=== PATIENT | female | born 1990 | race American Indian/Alaskan Native ===

== ENCOUNTER 2019-05-07 01:26 | Emergency (ER) | payer SELFPAY ==
[2019-05-07] MEDS ORDERED: CYCLOBENZAPRINE 10 MG TAB PO ONE (02:34)
[2019-05-07] MEDS ORDERED: KETOROLAC 30 MG/1 ML INJ IM ONE (02:34)
--- NOTE | 2019-05-07 02:40 | Emergency Department Report ---
ED Back Pain/Injury HPI - General Chief Complaint: Back Pain/Injury Stated Complaint: BACK PAIN Time Seen by Provider: 05/07/19 02:31 Source: patient Limitations: No Limitations - History of Present Illness Initial Comments: Ms Hess is a 28 y/o female who presents for back spams x 1 week. pt states she was being and felt her mid pack pull, now spasm intermittent. 5/10. pain is relieved by nothing, pain is exacerbated by bending twisting reaching. There is no numbness no tingling no weakness no loss or decrease in bowel or bladder function. pt remain ambulatory with steady gait. MD Complaint: back injury Onset/Timin -: week(s) Similar Symptoms Previously: Yes Place: home Radiation: none Severity: moderate Severity scale (0 -10): 4 Quality: aching (spasm) Consistency: intermittent Improves With: other (rest ) Worsens With: movement Context: turning/twisting, bending Associated Symptoms: denies other symptoms. denies: weakness, numbness, difficulty walking, difficulty urinating, incontinence, constipation, jason sea/vomiting - Related Data Previous Rx's Medication Instructions Recorded Last Taken Type Cyclobenzaprine [Flexeril] 10 mg PO TID PRN #30 tablet 05/07/19 Unknown Rx Menthol/Camphor [[place] 1 applicatio TP QID PRN #1 tube 05/07/19 Unknown Rx Ointment] Naproxen 500 mg PO BID PRN #30 tablet 05/07/19 Unknown Rx Allergies Allergy/AdvReac Type Severity Reaction Status Date / Time No Known Allergies Allergy Unverified 05/07/19 01:33 ED Review of Systems ROS: Stated complaint: BACK PAIN Other details as noted in HPI Constitutional: denies: chills, fever Eyes: denies: eye pain, eye discharge, vision change ENT: denies: ear pain, throat pain Respiratory: denies: cough, shortness of breath, wheezing Cardiovascular: denies: chest pain, palpitations Endocrine: no symptoms reported Gastrointestinal: denies: abdominal pain, nausea, diarrhea Genitourinary: denies: urgency, dysuria, discharge Musculoskeletal: denies: back pain, joint swelling, arthralgia, myalgia Skin: denies: rash, lesions Neurological: denies: headache, weakness, paresthesias Psychiatric: denies: anxiety, depression Hematological/Lymphatic: denies: easy bleeding, easy bruising ED Past Medical Hx - Past Medical History Previous Medical History?: No - Surgical History Past Surgical History?: No - Social History Smoking Status: Current Every Day Smoker Substance Use Type: None - Medications Home Medications: Home Medications Medication Instructions Recorded Confirmed Last Taken Type Cyclobenzaprine [Flexeril] 10 mg PO TID PRN #30 tablet 05/07/19 Unknown Rx Menthol/Camphor [[place] 1 applicatio TP QID PRN #1 tube 05/07/19 Unknown Rx Ointment] Naproxen 500 mg PO BID PRN #30 tablet 05/07/19 Unknown Rx ED Physical Exam - General Limitations: No Limitations General appearance: alert, in no apparent distress - Head Head exam: Present: atraumatic, normocephalic - Eye Eye exam: Present: normal appearance, PERRL, EOMI Pupils: Present: normal accommodation - ENT ENT exam: Present: mucous membranes moist - Neck Neck exam: Present: normal inspection. Absent: tenderness, lymphadenopathy - Respiratory Respiratory exam: Present: normal lung sounds bilaterally. Absent: respiratory distress, wheezes, stridor, chest wall tenderness - Cardiovascular Cardiovascular Exam: Present: regular rate, normal rhythm, normal heart sounds. Absent: systolic murmur, diastolic murmur, rubs, gallop - GI/Abdominal GI/Abdominal exam: Present: soft, normal bowel sounds. Absent: distended, tenderness, bruit, hernia - Rectal Rectal exam: Present: deferred - Extremities Exam Extremities exam: Present: normal inspection, normal capillary refill - Back Exam Back exam: Present: normal inspection, full ROM, tenderness (no posterior vertebral point tenderness, mild paraspinus back muscle tenderness with deep palpation), muscle spasm, paraspinal tenderness. Absent: CVA tenderness (R), CVA tenderness (L), vertebral tenderness, rash noted - Expanded Back Exam Expanded Back exam: Absent: saddle anesthesia Back exam: Negative Straight Leg Raising: Left, Right - Neurological Exam Neurological exam: Present: alert, oriented X3, CN II-XII intact, normal gait, reflexes normal. Absent: motor sensory deficit - Expanded Neurological Exam Expanded Patient oriented to: Present: person, place, time Motor strength exam: RUE: 5, LUE: 5, RLE: 5, LLE: 5 Best Eye Response (Ocate): (4) open spontaneously Best Motor Response (Dany): (6) obeys commands Best Verbal Response (Ocate): (5) oriented Ocate Total: 15 - Psychiatric Psychiatric exam: Present: normal affect, normal mood - Skin Skin exam: Present: warm, dry, intact, normal color. Absent: rash ED Course Vital Signs 05/07/19 01:32 Temperature 98.3 F Pulse Rate 91 H Respiratory 18 Rate Blood Pressure 157/92 O2 Sat by Pulse 96 Oximetry ED Medical Decision Making - Medical Decision Making This is a back strain, plan: nsaids, mucle relaxant, analgesic balm, follow up with pcp in 2-3 days moist heat, back exercises. pt verbalized agreement and understanding of discharge plan. Critical care attestation.: If time is entered above; I have spent that time in minutes in the direct care of this critically ill patient, excluding procedure time. ED Disposition Clinical Impression: Strain, back Qualifiers: Encounter type: initial encounter Qualified Code(s): S39.012A - Strain of muscle, fascia and tendon of lower back, initial encounter Disposition: - TO HOME OR SELFCARE Is pt being admited?: No Does the pt Need Aspirin: No Condition: Stable Instructions: Muscle Strain (ED), Core Strengthening Exercises (GEN) Prescriptions: Cyclobenzaprine [Flexeril] 10 mg PO TID PRN #30 tablet PRN Reason: Muscle Spasm Naproxen 500 mg PO BID PRN #30 tablet PRN Reason: pain Menthol/Camphor [[place] Ointment] 1 applicatio TP QID PRN #1 tube PRN Reason: pain Referrals: [facility] [Outside] - 3-5 Days TRUDY WOOD MD [Staff Physician] - 3-5 Days Forms: Work/School Release Form(ED) Time of Disposition: 02:47
[2019-05-07 03:34] VITALS: BP 150/92
== END 2019-05-07 03:30 | disposition home or self-care (01) ==
LOC: ED 01:26
DX: S39.012A Strain of muscle, fascia and tendon of lower back, initial encounter (principal); F17.200 Nicotine dependence, unspecified, uncomplicated; X50.1XXA Overexertion from prolonged static or awkward postures, initial encounter; Y93.89 Activity, other specified; Y92.009 Unspecified place in unspecified non-institutional (private) residence as the place of occurrence of the external cause; Y99.8 Other external cause status
CPT/HCPCS: 96372; 99282; J1885

== ENCOUNTER 2019-05-29 16:03 | Inpatient (IN) | payer OTHER ==
[2019-05-29] MEDS ORDERED: HYDROcodone/ACETAMINOPHEN 7.5-325MG TAB PO ONE (16:29)
[2019-05-29] MEDS ORDERED: HYDROcodone/ACETAMINOPHEN 7.5-325MG TAB ONE (16:30)
[2019-05-29] MEDS ORDERED: MORPHINE 4 MG/1 ML INJ IV ONE ×2 (17:34→18:23)
[2019-05-29] MEDS ORDERED: KETOROLAC 30 MG/1 ML INJ IV ONE (17:34)
--- NOTE | 2019-05-29 17:35 | Vascular Lab Report ---
DUPLEX DOPPLER LEFT LOWER EXTREMITY VEINS INDICATION: Pain, swelling FINDINGS: There is occlusive DVT throughout the left lower extremity from the external iliac vein through the c ofe veins. The findings were discussed with Dr. Caldwell at 5:13 PM Eastern time on 05/29/2019. Signer Name: Alejandro Guan MD Signed: 05/29/2019 5:30 PM Workstation Name: [id number]
--- NOTE | 2019-05-29 17:39 | Vascular Lab Report ---
DUPLEX DOPPLER LOWER EXTREMITY ARTERIAL, LEFT INDICATION: Pain, swelling, ext cool to touch. TECHNIQUE: Arterial duplex examination of the left lower extremity performed using B-mode, color flow and spectr al Doppler assessment. FINDINGS: LEFT: Common Femoral Artery: PSV 210 cm/sec. Triphasic waveform. Proximal SFA: PSV 129 cm/sec. Triphasic waveform. Mid SFA: PSV 75 cm/sec. Triphasic waveform. Distal SFA: PSV 47 cm/sec. Biphasic waveform. Popliteal artery: PSV 48 cm/sec. Biphasic waveform. Posterior tibial artery: PSV 42 cm/sec. Biphasic waveform. Dorsalis Pedis Artery: PSV 44 cm/sec. Biphasic waveform. IMPRESSION: 1. There is some degree of hemodynamically significant peripheral arterial disease in the left lower extremity based on waveform transition from triphasic to biphasic. Doppler Waveform: * Triphasic is normal. * Biphasic is abnormal if clear transition from triphasic signal along vascular tree. * Monophasic is abnormal. Signer Name: Alejandro Guan MD Signed: 05/29/2019 5:35 PM Workstation Name: [id number]
[2019-05-29 17:48] LABS: Hematocrit 42.5 % (30.3-42.9); Mean Corpuscular HGB Conc 33 % (30-34); Mean Corpuscular Volume 85 fl (79-97); Platelet Count 255 K/mm3 (140-440); Red Cell Distribution Width 13.5 % (13.2-15.2)
[2019-05-29 17:59] LABS: INR 1.02 (0.87-1.13)
[2019-05-29 18:00] LABS: Partial Thromboplastin Time 25.2 Sec. (24.2-36.6)
[2019-05-29 18:06] LABS: BUN/Creatinine Ratio 10; Blood Urea Nitrogen 9 mg/dL (7-17); Calcium 9.7 mg/dL (8.4-10.2); Hemolysis Index 58
--- NOTE | 2019-05-29 18:16 | History and Physical Report ---
History of Present Illness Chief complaint: My leg hurts History of present illness: 28 YO Female with MO, Nicotine Dependence, DJD presents to ED for evaluation. Pt states that she has experienced left lower leg and thigh pain over the past 2 days with persistently worsening symptoms over the same time frame. Pt states that pain in 8/10, constant, worsened with movement and weight bearing. Pt states that she had an influenza exposure within the past 1 week. Pt transported to [facility] via private vehicle. Pt seen and evaluated in ED and found to have Extensive LLE DVT as well as evidence of sepsis. Pt initiated on sepsis protocol, and admitted to medical floor. Vascular team consulted in ED. Pt is pending vascular surgical intervention. Pt denies fever, chills, CP, Palpitations, Hemoptysis, Prolonged travel/immobility, Individual/Family history of DVT/PE/Bleeding/Blood Clotting Disorders. No prior admission for review. All listed medication reconciled at time of admission. Past History Past Medical History: other (See HPI) Past Surgical History: No surgical history (reviewed), Other Social history: , lives with family, smoking. denies: alcohol abuse, prescription drug abuse, IV drug use Family history: no significant family history (reviewed) Medications and Allergies Allergies Allergy/AdvReac Type Severity Reaction Status Date / Time No Known Allergies Allergy Unverified 05/07/19 01:33 Home Medications Medication Instructions Recorded Confirmed Last Taken Type Cyclobenzaprine [Flexeril] 10 mg PO TID PRN #30 tablet 05/07/19 Unknown Rx Menthol/Camphor [[place] 1 applicatio TP QID PRN #1 tube 05/07/19 Unknown Rx Ointment] Naproxen 500 mg PO BID PRN #30 tablet 05/07/19 Unknown Rx Review of Systems Constitutional: no weight loss, no weight gain, no fever, no chills Ears, nose, mouth and throat: no ear pain, no ear discharge, no tinnitis, no nose pain, no nasal congestion, no sinus pressure Breasts: no change in shape, no swelling, no mass Cardiovascular: no chest pain, no orthopnea, no palpitations, no rapid/irregular heart beat, no syncope, no lightheadedness Respiratory: no cough, no cough with sputum, no excessive sputum, no hemoptysis, no shortness of breath, no dyspnea on exertion, no wheezing Gastrointestinal: no abdominal pain, no nausea, no vomiting, no constipation Genitourinary Female: no pelvic pain, no flank pain, no menorrhagia, no dysuria, no urinary frequency, no urgency Rectal: no pain, no incontinence, no bleeding Musculoskeletal: other (Left leg pain, swelling, ), no neck stiffness, no neck pain, no shooting arm pain Integumentary: no rash, no pruritis, no sores Neurological: no head injury, no paralysis, no weakness, no parathesias, no ting ling Psychiatric: no anxiety, no memory loss, no sleep disturbances, no insomnia, no change in appetite, no change in libido Endocrine: no cold intolerance, no heat intolerance, no excessive thirst, no polydipsia, no nocturia, no excessive sweating, no flushing Hematologic/Lymphatic: no easy bruising, no easy bleeding, no lymphadenopathy, no lymphedema Allergic/Immunologic: no urticaria, no allergic rhinitis, no persistent infections, no anaphylaxis, no angioedema Exam - Constitutional Vitals: Temp Pulse Resp BP Pulse Ox 97.5 F L 109 H 16 148/97 97 05/29/19 16:18 05/29/19 17:43 05/29/19 17:43 05/29/19 17:43 05/29/19 17:43 General appearance: Present: mild distress - EENT Eyes: Present: PERRL ENT: hearing intact, clear oral mucosa - Neck Neck: Present: supple, normal ROM - Respiratory Respiratory effort: normal Respiratory: bilateral: CTA - Cardiovascular Heart Sounds: Present: S1 & S2. Absent: rub, click - Extremities Extremities: pulses symmetrical, No edema Extremity abnormal: edema, tenderness (LLE edema, tenderness,) Peripheral Pulses: within normal limits - Abdominal General gastrointestinal: Present: soft, non-tender, non-distended, normal bowel sounds Female genitourinary: Present: normal - Integumentary Integumentary: Present: clear, warm, dry - Musculoskeletal Musculoskeletal: gait normal, strength equal bilaterally - Psychiatric Psychiatric: appropriate mood/affect, intact judgment & insight - Neurologic Neurologic: CNII-XII intact, moves all extremities Results - Labs CBC & Chem 7: 05/29/19 17:36 05/29/19 17:36 Labs: Abnormal lab results 05/29/19 05/29/19 Range/Units 17:36 17:36 WBC 26.3 H (4.5-11.0) K/mm3 Carbon Dioxide 18 L (22-30) mmol/L Glucose 132 H (65-100) mg/dL Assessment and Plan - Patient Problems (1) Sepsis Status: Acute Qualifiers: Severe sepsis shock status: unspecified Plan to address problem: Sepsis protocol: Urinalysis, Influenza A and B, CBC, CMP, Chest X ray, serial lactic acid level, IVF resuscitation therapy, IV antibiotic therapy. (2) Obesity Status: Acute Qualifiers: Body mass index: BMI 40.0-44.9 Plan to address problem: Balanced diet, increased physical activity ad discharge, (3) Nicotine dependence with withdrawal Status: Acute Qualifiers: Nicotine product type: cigarettes Qualified Code(s): F17.213 - Nicotine dependence, cigarettes, with withdrawal Plan to address problem: +15min, smoking cessation counseling, supportive care. (4) DVT (deep venous thrombosis) Status: Acute Qualifiers: DVT location: lower extremity Affected thrombotic vein of extremity: iliac Chronicity: acute Laterality: left Qualified Code(s): I82.422 - Acute embolism and thrombosis of left iliac vein Plan to address problem: Therapeutic anticoagulation, Hypercoagulable workup, heparin drip no bolus, Vascular surgery team consulted, Pt is pending surgical intervention today. (5) Acidosis Status: Acute Plan to address problem: Treat sepsis, serial lactic acid level, supportive care. IVF resuscitation therapy. (6) DVT prophylaxis Status: Acute Plan to address problem: SCD to BLE while in bed, therapeutic anticoagulation
[2019-05-29] MEDS ORDERED: ONDANSETRON 4 MG/2 ML INJ IV PRN ×2 (18:22→19:36)
[2019-05-29] MEDS ORDERED: ALBUTEROL 2.5 MG/3 ML NEBU IH PRN (18:22)
[2019-05-29] MEDS ORDERED: ACETAMINOPHEN 325 MG TAB PO PRN (18:22)
[2019-05-29 18:23] LABS: Basophils % (Manual) 0 % (0.0-1.8); Eosinophils % (Manual) 0 % (0.0-4.3); RBC Morphology Normal; Total Cells Counted 100
--- NOTE | 2019-05-29 18:27 | Emergency Department Report ---
ED Extremity Problem HPI - General Chief complaint: Extremity Problem,Nontraumatic Stated complaint: L LEG CRAMPING/PAIN/L FOOT NUMBNESS Time Seen by Provider: 05/29/19 17:09 Source: patient Mode of arrival: Wheelchair Limitations: No Limitations - History of Present Illness Initial comments: Patient is a 28-year-old female who is presenting with left thigh and left lower extremity pain. Patient states the pain began in her thigh feels worse with movement and walking. It is now extending into her foot. She denies any trauma. Patient states the pain is 8 out of 10 in severity. Patient denies chest pain shortness of breath fevers chills cough cold or congestion at this time. Severity scale (0 -10): 6 - Related Data Previous Rx's Medication Instructions Recorded Last Taken Type Cyclobenzaprine [Flexeril] 10 mg PO TID PRN #30 tablet 05/07/19 Unknown Rx Menthol/Camphor [[place] 1 applicatio TP QID PRN #1 tube 05/07/19 Unknown Rx Ointment] Naproxen 500 mg PO BID PRN #30 tablet 05/07/19 Unknown Rx Allergies Allergy/AdvReac Type Severity Reaction Status Date / Time No Known Allergies Allergy Unverified 05/07/19 01:33 ED Review of Systems ROS: Stated complaint: L LEG CRAMPING/PAIN/L FOOT NUMBNESS Other details as noted in HPI Comment: All other systems reviewed and negative ED Past Medical Hx - Past Medical History Previous Medical History?: No - Surgical History Past Surgical History?: No - Social History Smoking Status: Current Every Day Smoker Substance Use Type: Marijuana - Medications Home Medications: Home Medications Medication Instructions Recorded Confirmed Last Taken Type Cyclobenzaprine [Flexeril] 10 mg PO TID PRN #30 tablet 05/07/19 Unknown Rx Menthol/Camphor [[place] 1 applicatio TP QID PRN #1 tube 05/07/19 Unknown Rx Ointment] Naproxen 500 mg PO BID PRN #30 tablet 05/07/19 Unknown Rx ED Physical Exam - General Limitations: No Limitations General appearance: alert, in no apparent distress - Head Head exam: Present: atraumatic, normocephalic - Eye Eye exam: Present: normal appearance, PERRL, EOMI - ENT ENT exam: Present: mucous membranes moist - Neck Neck exam: Present: normal inspection - Respiratory Respiratory exam: Present: normal lung sounds bilaterally. Absent: respiratory distress, wheezes, rales, rhonchi - Cardiovascular Cardiovascular Exam: Present: regular rate, normal rhythm. Absent: systolic murmur, diastolic murmur, rubs, gallop - GI/Abdominal GI/Abdominal exam: Present: soft, normal bowel sounds. Absent: distended, tenderness, guarding - Extremities Exam Extremities exam: Present: normal inspection, tenderness (LLE at level of the th igh), normal capillary refill, other (bilateral lower extremities are cool to touch left greater than right a dorsalis pedal pulse on the left lower extremity is palpable but is diminished.) - Back Exam Back exam: Present: normal inspection - Neurological Exam Neurological exam: Present: alert, oriented X3 - Psychiatric Psychiatric exam: Present: normal affect, normal mood - Skin Skin exam: Present: warm, dry, intact, normal color. Absent: rash ED Course Vital Signs 05/29/19 05/29/19 16:18 17:43 Temperature 97.5 F L Pulse Rate 102 H 109 H Respiratory 18 16 Rate Blood Pressure 132/92 Blood Pressure 148/97 [Right] O2 Sat by Pulse 97 97 Oximetry ED Medical Decision Making - Lab Data Result diagrams: 05/29/19 17:36 05/29/19 17:36 Lab Results 05/29/19 05/29/19 05/29/19 Range/Units 17:36 17:36 17:36 WBC 26.3 H (4.5-11.0) K/mm3 RBC 5.00 (3.65-5.03) M/mm3 Hgb 14.0 (10.1-14.3) gm/dl Hct 42.5 (30.3-42.9) % MCV 85 (79-97) fl MCH 28 (28-32) pg MCHC 33 (30-34) % RDW 13.5 (13.2-15.2) % Plt Count 255 (140-440) K/mm3 Add Manual Diff Complete Total Counted 100 Seg Neuts % (Manual) 87.0 H (40.0-70.0) % Band Neutrophils % 0 % Lymphocytes % (Manual) 8.0 L (13.4-35.0) % Reactive Lymphs % (Man) 0 % Monocytes % (Manual) 5.0 (0.0-7.3) % Eosinophils % (Manual) 0 (0.0-4.3) % Basophils % (Manual) 0 (0.0-1.8) % Metamyelocytes % 0 % Myelocytes % 0 % Promyelocytes % 0 % Blast Cells % 0 % Nucleated RBC % Not Reportable Seg Neutrophils # Man 22.9 H (1.8-7.7) K/mm3 Band Neutrophils # 0.0 K/mm3 Lymphocytes # (Manual) 2.1 (1.2-5.4) K/mm3 Abs React Lymphs (Man) 0.0 K/mm3 Monocytes # (Manual) 1.3 H (0.0-0.8) K/mm3 Eosinophils # (Manual) 0.0 (0.0-0.4) K/mm3 Basophils # (Manual) 0.0 (0.0-0.1) K/mm3 Metamyelocytes # 0.0 K/mm3 Myelocytes # 0.0 K/mm3 Promyelocytes # 0.0 K/mm3 Blast Cells # 0.0 K/mm3 WBC Morphology Not Reportable Hypersegmented Neuts Not Reportable Hyposegmented Neuts Not Reportable Hypogranular Neuts Not Reportable Smudge Cells Not Reportable Toxic Granulation Not Reportable Toxic Vacuolation Not Reportable Dohle Bodies Not Reportable Pelger-Huet Anomaly Not Reportable Don Rods Not Reportable Platelet Estimate Not Reportable Clumped Platelets Not Reportable Plt Clumps, EDTA Not Reportable Large Platelets Not Reportable Giant Platelets Not Reportable Platelet Satelliting Not Reportable Plt Morphology Comment Not Reportable RBC Morphology Normal Dimorphic RBCs Not Reportable Polychromasia Not Reportable Hypochromasia Not Reportable Poikilocytosis Not Reportable Anisocytosis Not Reportable Microcytosis Not Reportable Macrocytosis Not Reportable Spherocytes Not Reportable Pappenheimer Bodies Not Reportable Sickle Cells Not Reportable Target Cells Not Reportable Tear Drop Cells Not Reportable Ovalocytes Not Reportable Helmet Cells Not Reportable [place] Bodies Not Reportable Tucker Rings Not Reportable [place] Cells Not Reportable Bite Cells Not Reportable Crenated Cell Not Reportable Elliptocytes Not Reportable Acanthocytes (Spur) Not Reportable Rouleaux Not Reportable Hemoglobin C Crystals Not Reportable Schistocytes Not Reportable Malaria parasites Not Reportable Miguel Bodies Not Reportable Hem Pathologist Commnt No PT 13.3 (12.2-14.9) Sec. INR 1.02 (0.87-1.13) APTT 25.2 (24.2-36.6) Sec. Sodium 137 (137-145) mmol/L Potassium 4.5 (3.6-5.0) mmol/L Chloride 98.3 (98-107) mmol/L Carbon Dioxide 18 L (22-30) mmol/L Anion Gap 25 mmol/L BUN 9 (7-17) mg/dL Creatinine 0.9 (0.7-1.2) mg/dL Estimated GFR > 60 ml/min BUN/Creatinine Ratio 10 % Glucose 132 H (65-100) mg/dL Calcium 9.7 (8.4-10.2) mg/dL - Radiology Data DUPLEX DOPPLER LEFT LOWER EXTREMITY VEINS INDICATION: Pain, swelling FINDINGS: There is occlusive DVT throughout the left lower extremity from the external iliac vein through the calf veins. The findings were discussed with Dr. Caldwell at 5:13 PM Eastern time on 05/29/2019. Signer Name: Alejandro Guan MD Signed: 05/29/2019 5:30 PM Workstation Name: [id number] Transcribed By: SAGAR Dictated By: Alejandro Guan MD Electronically Authenticated By: Alejandro Guan MD Signed Date/Time: 05/29/19 2659 DUPLEX DOPPLER LOWER EXTREMITY ARTERIAL, LEFT INDICATION: Pain, swelling, ext cool to touch. TECHNIQUE: Arterial duplex examination of the left lower extremity performed using B-mode, color flow and spectral Doppler assessment. FINDINGS: LEFT: Common Femoral Artery: PSV 210 cm/sec. Triphasic waveform. Proximal SFA: PSV 129 cm/sec. Triphasic waveform. Mid SFA: PSV 75 cm/sec. Triphasic waveform. Distal SFA: PSV 47 cm/sec. Biphasic waveform. Popliteal artery: PSV 48 cm/sec. Biphasic waveform. Posterior tibial artery: PSV 42 cm/sec. Biphasic waveform. Dorsalis Pedis Artery: PSV 44 cm/sec. Biphasic waveform. IMPRESSION: 1. There is some degree of hemodynamically significant peripheral arterial disease in the left lower extremity based on waveform transition from triphasic to biphasic. Doppler Waveform: * Triphasic is normal. * Biphasic is abnormal if clear transition from triphasic signal along vascular tree. * Monophasic is abnormal. Signer Name: Alejandro Guan MD Signed: 05/29/2019 5:35 PM - Medical Decision Making Patient is a 28-year-old female who is presenting with left lower extremity pain. Ultrasound of the veins and arteries show that the patient has an occlusive DVT of the left lower extremity at the level of the external iliac vein. The clot extends down through the calf veins. Patient also has a transition in her arterial system in this leg from triphasic to biphasic. There was no monophasic flow. Dr. Wesley with vascular surgery is been consulted and will see the patient today and. Dr. Pa with the hospitalist service will admit the patient. Critical Care Time: Yes (30) Critical care attestation.: If time is entered above; I have spent that time in minutes in the direct care of this critically ill patient, excluding procedure time. ED Disposition Clinical Impression: Peripheral vascular disease of lower extremity DVT (deep venous thrombosis) Qualifiers: DVT location: lower extremity Affected thrombotic vein of extremity: iliac Chronicity: acute Laterality: left Qualified Code(s): I82.422 - Acute embolism and thrombosis of left iliac vein Leukocytosis Qualifiers: Leukocytosis type: unspecified Qualified Code(s): D72.829 - Elevated white blood cell count, unspecified Disposition: DC-09 OP ADMIT IP TO THIS HOSP Is pt being admited?: Yes Does the pt Need Aspirin: No Condition: Stable Time of Disposition: 18:30
--- NOTE | 2019-05-29 18:52 | XRay Report ---
CHEST 1 VIEW 05/29/2019 6:30 PM INDICATION / CLINICAL INFORMATION: cough. COMPARISON: None available. FINDINGS: SUPPORT DEVICES: None. HEART / MEDIASTINUM: No significant abnormality. LUNGS / PLEURA: No significant pulmonary or pleural abnormality. No pneumothorax. ADDITIONAL FINDINGS: No significant additional findings. IMPRESSION: 1. No acute findings. Signer Name: Alejandro Guan MD Signed: 05/29/2019 6:47 PM Workstation Name: [id number]
[2019-05-29] MEDS ORDERED: HEPARIN/ 0.45% NACL DRIP 25,000 UNIT/500 ML BAG IV SCH (19:00)
[2019-05-29] MEDS ORDERED: SODIUM CHLORIDE 0.9% 1000 ML IV SOLN IV ONE (19:00)
[2019-05-29] MEDS ORDERED: cefTRIAXone/NS 2 GM/100 ML 2 GM/100 ML BAG IV SCH (19:00)
[2019-05-29] MEDS ORDERED: VANCOMYCIN PHARMACY TO DOSE IV SCH (19:00)
[2019-05-29] MEDS ORDERED: HEPARIN/NS 5000 UNIT/500ML 1,000 ML IR ONE (19:07)
[2019-05-29] MEDS ORDERED: SODIUM CHLORIDE 0.9% 500 ML 0 ML ONE (19:30)
[2019-05-29] MEDS ORDERED: WATER FOR INJ Sterile (PF) 10 ML ONE (19:30)
[2019-05-29] MEDS ORDERED: SODIUM CHLORIDE 0.9% 1000 ML 1,000 ML ONE (19:32)
[2019-05-29] MEDS ORDERED: HEPARIN/ 0.45% NACL DRIP 25,000 UNIT/500 ML BAG ONE (19:32)
[2019-05-29] MEDS ORDERED: MORPHINE 4 MG/1 ML INJ IV PRN (19:36)
--- NOTE | 2019-05-29 19:44 | Consultation ---
History of Present Illness - Reason for Consult Consult date: 05/29/19 DVT, decreased arterial waveforms - History of Present Illness Patient with a 2 day history of worsening left lower extremity pain. She was found to have an extensive iliofemoral DVT with extension to the lower leg. Additionally, arterial duplex demonstrates triphasic flow proximally with biphasic flow distally suggesting some arterial compromise. Past History Past Medical History: other (See HPI) Past Surgical History: No surgical history (reviewed), Other Social history: , lives with family, smoking. denies: alcohol abuse, prescription drug abuse, IV drug use Family history: no significant family history (reviewed) Medications and Allergies Allergies Allergy/AdvReac Type Severity Reaction Status Date / Time No Known Allergies Allergy Unverified 05/07/19 01:33 Home Medications Medication Instructions Recorded Confirmed Last Taken Type Cyclobenzaprine [Flexeril] 10 mg PO TID PRN #30 tablet 05/07/19 Unknown Rx Menthol/Camphor [[place] 1 applicatio TP QID PRN #1 tube 05/07/19 Unknown Rx Ointment] Naproxen 500 mg PO BID PRN #30 tablet 05/07/19 Unknown Rx Active Meds: Active Medications Acetaminophen (Tylenol) 650 mg PO Q4H PRN PRN Reason: Pain MILD(1-3)/Fever >100.5/ARAGON Acetaminophen/Hydrocodone Bitart ([place] 5/325) 2 each PO Q6H PRN PRN Reason: Pain, Moderate (4-6) Albuterol (Proventil) 2.5 mg IH Q4H PRN PRN Reason: Shortness Of Breath Vancomycin HCl 2,000 mg/ (Sodium Chloride) 540 mls @ 333 mls/hr IV ONCE ONE; Protocol Stop: 05/29/19 21:37 Ceftriaxone Sodium (Rocephin/Ns 2 Gm/100 Ml) 2 gm in 100 mls @ 200 mls/hr IV Q12H ROE; Protocol Sodium Chloride (Nacl 0.9% 1000 Ml) 1,000 mls @ 30 mls/hr IV DIRECT ROE Alteplase, Recombinant 20 mg/ (Sodium Chloride) 500 mls @ 25 mls/hr EKOSDLUMEN DIRECT ROE Sodium Chloride (Nacl 0.9% 1000 Ml) 1,000 mls @ 30 mls/hr SHEATH DIRECT ROE Sodium Chloride (Nacl 0.9% 1000 Ml) 1,000 mls @ 35 mls/hr EKOSCLUMEN DIRECT ROE Heparin Sodium/Sodium Chloride (Heparin/ 0.45% Nacl-25,000 Unit/500 Ml) 25,000 unit in 500 mls @ 10 mls/hr SHEATH DIRECT ROE; Protocol Morphine Sulfate (Morphine) 4 mg IV Q4H PRN PRN Reason: Pain , Severe (7-10) Morphine Sulfate (Morphine) 2 mg IV Q4H PRN PRN Reason: Pain, Moderate (4-6) Ondansetron HCl (Zofran) 4 mg IV Q8H PRN PRN Reason: Nausea And Vomiting Ondansetron HCl (Zofran) 4 mg IV Q8H PRN PRN Reason: Nausea And Vomiting Oxycodone/Acetaminophen (Percocet 5/325) 1 tab PO Q6H PRN PRN Reason: Pain, Moderate (4-6) Sodium Chloride (Sodium Chloride Flush Syringe 10 Ml) 10 ml IV BID ROE Sodium Chloride (Sodium Chloride Flush Syringe 10 Ml) 10 ml IV PRN PRN PRN Reason: LINE FLUSH Review of Systems All systems: negative Exam - Constitutional Vitals: Temp Pulse Resp BP Pulse Ox 97.5 F L 109 H 16 148/97 97 05/29/19 16:18 05/29/19 17:43 05/29/19 17:43 05/29/19 17:43 05/29/19 17:43 General appearance: Present: no acute distress - EENT Eyes: Present: EOM intact ENT: hearing intact - Neck Neck: Present: supple, normal ROM - Respiratory Respiratory effort: normal - Extremities Extremity abnormal: edema (lower extremity) - Abdominal General gastrointestinal: Present: deferred - Rectal Rectal Exam: deferred - Psychiatric Psychiatric: cooperative Results - Labs CBC & Chem 7: 05/29/19 17:36 05/29/19 17:36 Labs: Abnormal lab results 05/29/19 05/29/19 Range/Units 17:36 17:36 WBC 26.3 H (4.5-11.0) K/mm3 Seg Neuts % (Manual) 87.0 H (40.0-70.0) % Lymphocytes % (Manual) 8.0 L (13.4-35.0) % Seg Neutrophils # Man 22.9 H (1.8-7.7) K/mm3 Monocytes # (Manual) 1.3 H (0.0-0.8) K/mm3 Carbon Dioxide 18 L (22-30) mmol/L Glucose 132 H (65-100) mg/dL Assessment and Plan Patient with extensive DVT and arterial compromise. She will be brought to the finishing lab technician for placement of an IVC filter as well as an EKOS thrombolytics catheter. She will need admission to the ICU overnight with reevaluation tomorrow to determine the extent of thrombus removal.
[2019-05-29] MEDS ORDERED: SODIUM CHLORIDE 0.9% 1000 ML 1,000 ML EKOSCLUMEN SCH (20:00)
[2019-05-29 20:01] LABS: Bacteria,Urine 4+ /HPF (Negative); Bilirubin,Urine NEG (Negative); Blood,Urine LG (Negative); Color,Urine Yellow (Yellow); HCG Qualitative,Urine Negative (Negative); Mucus,Urine 2+ /HPF; Urobilinogen,Urine < 2.0 mg/dL (<2.0)
[2019-05-29] MEDS: MIDAZOLAM 2 MG/2 ML INJ ONE ×2 (20:20→20:53)
[2019-05-29] MEDS: fentaNYL 100 MCG/2 ML INJ ONE ×2 (20:20→20:53)
[2019-05-29] MEDS: LIDOCAINE (2%) 20 MG/1 ML VIAL 20 ML MDV INFILTRATI ONE ×2 (20:21→20:54)
[2019-05-29] MEDS: HEPARIN 10,000 UNITS/10 ML VIAL ONE ×5 (20:25→21:09)
[2019-05-29] MEDS: SODIUM CHLORIDE 0.9% 1000 ML 1,000 ML SHEATH SCH ×2 (20:30→21:39)
[2019-05-29] MEDS: HEPARIN/ 0.45% NACL DRIP 25,000 UNIT/500 ML BAG SHEATH SCH ×2 (20:30→21:39)
--- NOTE | 2019-05-29 20:40 | Operative Report ---
Operative Report Operative Report: Exam: Ultrasound and fluoroscopic guided placement of IVC filter, ultrasound and fluoroscopic guided placement of Tryalysis catheter, ultrasound and fluoroscopic guided placement of EKOS thrombolytics catheter Clinical indication: Patient with extensive left lower extremity DVT and arterial compromise Date: 05/29/2019 Procedure: Following an expiration of the risks, benefits and alternatives; written informed consent was obtained. The patient was brought to the angiographic suite and initially placed in supine position on the examination table. Initial ultrasound evaluation of her right groin demonstrated a patent right common femoral vein. The patient's right groin was prepped and draped in the usual sterile fashion. 1% lidocaine was used for anesthesia. Under ultrasound guidance, the right common femoral vein was cannulated using a single puncture of an 18-gauge 7 cm needle. A 0.035 guidewire was advanced centrally. The needle was removed and following dilation, the trocar sheath for the IVC filter were advanced over the guidewire to the infrarenal IVC. Contrast was injected which demonstrates a diminutive appearance of the infrarenal IVC which may be secondary to chronic thrombus versus narrowing. The level of the lowest renal veins was identified. The guidewire was reinserted and the trocar and sheath advanced more distally. The trocar and guidewire were removed. A [place] IVC filter was then advanced through the sheath and positioned so that the tip of the IVC filter is at the midportion of the L2 vertebral body. The sheath was removed over the guidewire. A Bard 20 cm Tryalysis catheter was then advanced over the guidewire centrally. The tip of the catheter was placed in the distal IVC. The guidewire was removed. All 3 ports flushed and aspirated easily. The dialysis ports were locked with appropriate volumes of heparin. The pigtail portion was locked with sterile saline. The catheter was securely fastened at the skin surface using 0 silk suture and a compression dressing applied. The patient was then turned to the prone position. Initial ultrasound evaluation of the popliteal fossa demonstrated thrombus within the popliteal vein. The popliteal artery demonstrates pulsatility. The patient popliteal fossa was prepped and draped in the usual sterile fashion on the left. 1% lidocaine was used for anesthesia. Under ultrasound guidance, a 7 cm 18-gauge needle was advanced into the popliteal vein. There was prompt return of dark blood. A 0.035 guidewire was advanced centrally. The needle was removed and a vertebral catheter advanced over the guidewire. Together the vertebral catheter and guidewire were advanced into the left common iliac vein. Contrast was injected which demonstrates that there is some movement of the thrombus into the common iliac vein and IVC as compared to patient's ultrasound. The right vertebral catheter was advanced to the suprarenal IVC and contrast injected gently to document patnecy of the IVC. The catheter was removed. A 40 cm infusion length 106 cm total length EKOS thrombolytics catheter was then advanced over the guidewire to extend from the common iliac vein into the distal femoral vein. The ultrasound wire was then inserted through the catheter. The sheath was then securely fastened of the skin surface and the catheter attached to the sheath. A sterile compression dressing was applied. Sterile dressings were then applied to hold the catheter in position and the catheter primed with 4 mg of TPA and the sheath primed with 4000 units of heparin. The patient tolerated both procedures well. There were no immediate post procedure complications. Conscious sedation was administered under the guidance or radiologic nursing. Continuous cardiopulmonary monitoring was utilized. Impression: 1) Ultrasound and fluoroscopic guided placement of IVC filter from a right common femoral vein approach. 2) Ultrasound and fluoroscopic guided placement of Tryalysis catheter in the right common femoral vein. 3) Ultrasound and fluoroscopic guided placement of EKOS thrombolytics catheter from the left common iliac vein into the distal femoral vein.
[2019-05-29] MEDS: ALTEPLASE 2 MG INJ ONE ×2 (20:59→21:09)
[2019-05-29] MEDS: ALTEPLASE 20 MG in SODIUM CHLORIDE 0.9% 500 ML 500 ML EKOSDLUMEN SCH ×2 (21:08→21:39)
[2019-05-29] MEDS ORDERED: hydrALAZINE 10 MG TAB PO PRN (22:23)
[2019-05-29] MEDS: hydrALAZINE 20 MG/1 ML INJ IV PRN (22:45)
[2019-05-29 23:00] LABS: INR 0.99 (0.87-1.13)
[2019-05-29 23:01] LABS: Partial Thromboplastin Time 27.3 Sec. (24.2-36.6)
[2019-05-29 23:14] LABS: Hematocrit 37.7 % (30.3-42.9); Hemoglobin 12.5 gm/dl (10.1-14.3); Mean Corpuscular HGB Conc 33 % (30-34); Mean Corpuscular Volume 85 fl (79-97); Platelet Count 212 K/mm3 (140-440); Red Blood Count 4.44 M/mm3 (3.65-5.03); Red Cell Distribution Width 13.5 % (13.2-15.2)
[2019-05-29] MEDS: MORPHINE 2 MG/1 ML INJ IV PRN (23:17)
[2019-05-29 23:32] LABS: BUN/Creatinine Ratio 13; Blood Urea Nitrogen 9 mg/dL (7-17); Calcium 8.8 mg/dL (8.4-10.2); Hemolysis Index 37
[2019-05-29] MEDS: VANCOMYCIN 2,000 MG in SODIUM CHLORIDE 0.9% 500 ML 500 ML IV ONE ×2 (23:52→23:59)
[2019-05-30] MEDS ORDERED: VANCOMYCIN 2,000 MG in SODIUM CHLORIDE 0.9% 500 ML 500 ML IV ONE
[2019-05-30 00:38] LABS: Band Neutrophils # (Manual) 0.4 K/mm3; Basophils % (Manual) 0 % (0.0-1.8); Eosinophils % (Manual) 0 % (0.0-4.3); Total Cells Counted 100
[2019-05-30 00:39] LABS: Platelet Estimate Consistent w Auto; RBC Morphology Normal
[2019-05-30] MEDS ORDERED: cefTRIAXone/NS 2 GM/100 ML 2 GM/100 ML BAG IV SCH ×3 (01:00→10:00)
[2019-05-30] MEDS: oxyCODONE /ACETAMINOPHEN 5-325MG TAB PO PRN ×3 (01:11→21:08)
[2019-05-30 01:47] LABS: Basophils % (Auto) 0.2 % (0.0-1.8); Eosinophils % (Auto) 0.1 % (0.0-4.3); Hematocrit 36.5 % (30.3-42.9); Hemoglobin 12.1 gm/dl (10.1-14.3); Lymphocytes % (Auto) 15.1 % (13.4-35.0); Mean Corpuscular HGB Conc 33 % (30-34); Mean Corpuscular Volume 86 fl (79-97); Monocytes % (Auto) 5.1 % (0.0-7.3); Platelet Count 175 K/mm3 (140-440); Red Blood Count 4.27 M/mm3 (3.65-5.03); Red Cell Distribution Width 13.3 % (13.2-15.2)
[2019-05-30] MEDS: MORPHINE 2 MG/1 ML INJ IV PRN ×2 (03:24→07:17)
[2019-05-30 06:40] LABS: Basophils % (Auto) 0.2 % (0.0-1.8); Eosinophils % (Auto) 0.2 % (0.0-4.3); Hematocrit 35.7 % (30.3-42.9); Hemoglobin 11.8 gm/dl (10.1-14.3); Lymphocytes # (Auto) 2.6 K/mm3 (1.2-5.4); Lymphocytes % (Auto) 15.7 % (13.4-35.0); Mean Corpuscular HGB Conc 33 % (30-34); Mean Corpuscular Volume 85 fl (79-97); Monocytes % (Auto) 5.7 % (0.0-7.3); Platelet Count 161 K/mm3 (140-440); Red Blood Count 4.19 M/mm3 (3.65-5.03); Red Cell Distribution Width 13.4 % (13.2-15.2)
[2019-05-30 07:00] LABS: BUN/Creatinine Ratio 11; Blood Urea Nitrogen 8 mg/dL (7-17); Calcium 8.4 mg/dL (8.4-10.2); Hemolysis Index 8
[2019-05-30] MEDS: hydrALAZINE 20 MG/1 ML INJ IV PRN ×2 (08:17→14:36)
[2019-05-30] MEDS: SODIUM CHLORIDE 0.9% 1000 ML 1,000 ML IV SCH ×2 (08:18→11:35)
[2019-05-30] MEDS: VANCOMYCIN 1,250 MG in SODIUM CHLORIDE 0.9% 250ML 250 ML IV SCH ×2 (08:40→21:08)
[2019-05-30] MEDS: cefTRIAXone/NS 2 GM/100 ML 2 GM/100 ML BAG IV SCH (09:48)
--- NOTE | 2019-05-30 10:01 | Progress Note ---
Assessment and Plan Assessment and plan: Sepsis Sepsis protocol: Urinalysis, Influenza A and B, CBC, CMP, Chest X ray, serial lactic acid level, IVF resuscitation therapy, IV antibiotic therapy. On Ceftriaxone and vancomycin DVT left lower ext s/p IVC filter placement, EKOS catheter placenment and thrombolysis Therapeutic anticoagulation, Hypercoagulable workup, heparin drip no bolus, Obesity Balanced diet, increased physical activity ad discharge, Nicotine dependence with withdrawal +15min, smoking cessation counseling, supportive care. Acidosis Treat sepsis, serial lactic acid level, supportive care. IVF resuscitation therapy. UTI On Ceftriaxone History Interval history: Left lower ext pain, diagnosed with DVT s/p IVC filter placement, EKOS catheter placement Hospitalist Physical - Physical exam Narrative exam: Gen: Not in acute distress, lying in bed,morbidly obese HEENT: Normocephalic, atraumatic Neck: supple, no JVD Heart: S1 and S2 reg, no murmurs, rubs or gallop Lungs: Clear to auscultation, Abd: soft, non tender, non distended, normal BS, Ext: No edema, no clubbing, no cyanosis Neuro: Awake, alert, oriented X 3, normal speech. moves all ext - Constitutional Vitals: Temp Pulse Resp BP Pulse Ox 98.3 F 126 H 20 153/94 94 05/30/19 08:00 05/30/19 09:00 05/30/19 09:00 05/30/19 09:00 05/30/19 09:00 General appearance: Present: no acute distress Results - Labs CBC & Chem 7: 05/30/19 15:21 05/31/19 04:42 Labs: Laboratory Last Values WBC 16.8 K/mm3 (4.5-11.0) H 05/30/19 06:20 RBC 4.19 M/mm3 (3.65-5.03) 05/30/19 06:20 Hgb 11.8 gm/dl (10.1-14.3) 05/30/19 06:20 Hct 35.7 % (30.3-42.9) 05/30/19 06:20 MCV 85 fl (79-97) 05/30/19 06:20 MCH 28 pg (28-32) 05/30/19 06:20 MCHC 33 % (30-34) 05/30/19 06:20 RDW 13.4 % (13.2-15.2) 05/30/19 06:20 Plt Count 161 K/mm3 (140-440) 05/30/19 06:20 Lymph % (Auto) 15.7 % (13.4-35.0) 05/30/19 06:20 [place] % (Auto) 5.7 % (0.0-7.3) 05/30/19 06:20 Eos % (Auto) 0.2 % (0.0-4.3) 05/30/19 06:20 Baso % (Auto) 0.2 % (0.0-1.8) 05/30/19 06:20 Lymph # 2.6 K/mm3 (1.2-5.4) 05/30/19 06:20 [place] # 1.0 K/mm3 (0.0-0.8) H 05/30/19 06:20 Eos # 0.0 K/mm3 (0.0-0.4) 05/30/19 06:20 Baso # 0.0 K/mm3 (0.0-0.1) 05/30/19 06:20 Add Manual Diff Complete 05/29/19 22:50 Total Counted 100 05/29/19 22:50 Seg Neutrophils % 78.2 % (40.0-70.0) H 05/30/19 06:20 Seg Neuts % (Manual) 82.0 % (40.0-70.0) H 05/29/19 22:50 Band Neutrophils % 2.0 % 05/29/19 22:50 Lymphocytes % (Manual) 14.0 % (13.4-35.0) 05/29/19 22:50 Reactive Lymphs % (Man) 0 % 05/29/19 22:50 Monocytes % (Manual) 2.0 % (0.0-7.3) 05/29/19 22:50 Eosinophils % (Manual) 0 % (0.0-4.3) 05/29/19 22:50 Basophils % (Manual) 0 % (0.0-1.8) 05/29/19 22:50 Metamyelocytes % 0 % 05/29/19 22:50 Myelocytes % 0 % 05/29/19 22:50 Promyelocytes % 0 % 05/29/19 22:50 Blast Cells % 0 % 05/29/19 22:50 Nucleated RBC % Not Reportable 05/29/19 22:50 Seg Neutrophils # 13.2 K/mm3 (1.8-7.7) H 05/30/19 06:20 Seg Neutrophils # Man 17.0 K/mm3 (1.8-7.7) H 05/29/19 22:50 Band Neutrophils # 0.4 K/mm3 05/29/19 22:50 Lymphocytes # (Manual) 2.9 K/mm3 (1.2-5.4) 05/29/19 22:50 Abs React Lymphs (Man) 0.0 K/mm3 05/29/19 22:50 Monocytes # (Manual) 0.4 K/mm3 (0.0-0.8) 05/29/19 22:50 Eosinophils # (Manual) 0.0 K/mm3 (0.0-0.4) 05/29/19 22:50 Basophils # (Manual) 0.0 K/mm3 (0.0-0.1) 05/29/19 22:50 Metamyelocytes # 0.0 K/mm3 05/29/19 22:50 Myelocytes # 0.0 K/mm3 05/29/19 22:50 Promyelocytes # 0.0 K/mm3 05/29/19 22:50 Blast Cells # 0.0 K/mm3 05/29/19 22:50 WBC Morphology Not Reportable 05/29/19 22:50 Hypersegmented Neuts Not Reportable 05/29/19 22:50 Hyposegmented Neuts Not Reportable 05/29/19 22:50 Hypogranular Neuts Not Reportable 05/29/19 22:50 Smudge Cells Not Reportable 05/29/19 22:50 Toxic Granulation Not Reportable 05/29/19 22:50 Toxic Vacuolation Not Reportable 05/29/19 22:50 Dohle Bodies Not Reportable 05/29/19 22:50 Pelger-Huet Anomaly Not Reportable 05/29/19 22:50 Don Rods Not Reportable 05/29/19 22:50 Platelet Estimate Consistent w auto 05/29/19 22:50 Clumped Platelets Not Reportable 05/29/19 22:50 Plt Clumps, EDTA Not Reportable 05/29/19 22:50 Large Platelets Not Reportable 05/29/19 22:50 Giant Platelets Not Reportable 05/29/19 22:50 Platelet Satelliting Not Reportable 05/29/19 22:50 Plt Morphology Comment Not Reportable 05/29/19 22:50 RBC Morphology Normal 05/29/19 22:50 Dimorphic RBCs Not Reportable 05/29/19 22:50 Polychromasia Not Reportable 05/29/19 22:50 Hypochromasia Not Reportable 05/29/19 22:50 Poikilocytosis Not Reportable 05/29/19 22:50 Anisocytosis Not Reportable 05/29/19 22:50 Microcytosis Not Reportable 05/29/19 22:50 Macrocytosis Not Reportable 05/29/19 22:50 Spherocytes Not Reportable 05/29/19 22:50 Pappenheimer Bodies Not Reportable 05/29/19 22:50 Sickle Cells Not Reportable 05/29/19 22:50 Target Cells Not Reportable 05/29/19 22:50 Tear Drop Cells Not Reportable 05/29/19 22:50 Ovalocytes Not Reportable 05/29/19 22:50 Helmet Cells Not Reportable 05/29/19 22:50 [place] Bodies Not Reportable 05/29/19 22:50 [place] Rings Not Reportable 05/29/19 22:50 [place] Cells Not Reportable 05/29/19 22:50 Bite Cells Not Reportable 05/29/19 22:50 Crenated Cell Not Reportable 05/29/19 22:50 Elliptocytes Not Reportable 05/29/19 22:50 Acanthocytes (Spur) Not Reportable 05/29/19 22:50 Rouleaux Not Reportable 05/29/19 22:50 Hemoglobin C Crystals Not Reportable 05/29/19 22:50 Schistocytes Not Reportable 05/29/19 22:50 Malaria parasites Not Reportable 05/29/19 22:50 Miguel Bodies Not Reportable 05/29/19 22:50 Hem Pathologist Commnt No 05/29/19 22:50 PT 13.0 Sec. (12.2-14.9) 05/29/19 17:36 PT 13.3 Sec. (12.2-14.9) 05/29/19 17:36 INR 0.99 (0.87-1.13) 05/29/19 17:36 INR 1.02 (0.87-1.13) 05/29/19 17:36 APTT 25.2 Sec. (24.2-36.6) 05/29/19 17:36 APTT 27.3 Sec. (24.2-36.6) 05/29/19 17:36 Fibrinogen 139 mg/dl (211-480) L 05/30/19 06:20 Heparin Anti-Xa Level 0.10 U.I./ml (0.3-0.7) L 05/30/19 06:20 Sodium 137 mmol/L (137-145) 05/30/19 06:20 Potassium 3.8 mmol/L (3.6-5.0) 05/30/19 06:20 Chloride 103.5 mmol/L (98-107) 05/30/19 06:20 Carbon Dioxide 21 mmol/L (22-30) L 05/30/19 06:20 Anion Gap 16 mmol/L 05/30/19 06:20 BUN 8 mg/dL (7-17) 05/30/19 06:20 Creatinine 0.7 mg/dL (0.7-1.2) 05/30/19 06:20 Estimated GFR > 60 ml/min 05/30/19 06:20 BUN/Creatinine Ratio 11 % 05/30/19 06:20 Glucose 127 mg/dL (65-100) H 05/30/19 06:20 Lactic Acid 1.20 mmol/L (0.7-2.0) 05/30/19 00:55 Calcium 8.4 mg/dL (8.4-10.2) 05/30/19 06:20 Urine Color Yellow (Yellow) 05/29/19 19:48 Urine Turbidity Cloudy (Clear) 05/29/19 19:48 Urine pH 5.0 (5.0-7.0) 05/29/19 19:48 Ur Specific [place] 1.020 (1.003-1.030) 05/29/19 19:48 Urine Protein 100 mg/dl mg/dL (Negative) 05/29/19 19:48 Urine Glucose (UA) Neg mg/dL (Negative) 05/29/19 19:48 Urine Ketones Neg mg/dL (Negative) 05/29/19 19:48 Urine Blood Lg (Negative) 05/29/19 19:48 Urine Nitrite Neg (Negative) 05/29/19 19:48 Urine Bilirubin Neg (Negative) 05/29/19 19:48 Urine Urobilinogen < 2.0 mg/dL (<2.0) 05/29/19 19:48 Ur Leukocyte Esterase Sm (Negative) 05/29/19 19:48 Urine WBC (Auto) 42.0 /HPF (0.0-6.0) H 05/29/19 19:48 Urine RBC (Auto) 4.0 /HPF (0.0-6.0) 05/29/19 19:48 U Epithel Cells (Auto) 32.0 /HPF (0-13.0) H 05/29/19 19:48 Urine Bacteria (Auto) 4+ /HPF (Negative) 05/29/19 19:48 Urine Mucus 2+ /HPF 05/29/19 19:48 Urine Yeast (Budding) Few /HPF 05/29/19 19:48 Urine HCG, Qual Negative (Negative) 05/29/19 19:48 Active Medications - Current Medications Current Medications: Generic Name Dose Route Start Last Admin Trade Name Freq PRN Reason Stop Dose Admin Acetaminophen 650 mg 05/29/19 18:22 Tylenol PO Q4H PRN Pain MILD(1-3)/Fever >100.5/ARAGON Acetaminophen/Hydrocodone Bitart 2 each 05/29/19 19:36 [place] 5/325 PO Q6H PRN Pain, Moderate (4-6) Albuterol 2.5 mg 05/29/19 18:22 Proventil IH Q4H PRN Shortness Of Breath Hydralazine HCl 10 mg 05/29/19 22:43 05/30/19 08:17 Apresoline IV 10 mg Q6H PRN Administration Blood Pressure Sodium Chloride 1,000 mls @ 30 mls/hr 05/29/19 20:00 05/30/19 08:18 Nacl 0.9% 1000 Ml IV 30 mls/hr DIRECT ROE Administration Alteplase, Recombinant 20 mg/ 500 mls @ 25 mls/hr 05/29/19 20:00 05/30/19 08:29 Sodium Chloride EKOSDLUMEN 0 mls/hr DIRECT ROE Infusion Sodium Chloride 1,000 mls @ 30 mls/hr 05/29/19 20:00 05/29/19 21:39 Nacl 0.9% 1000 Ml SHEATH 30 mls DIRECT ROE Administration Sodium Chloride 1,000 mls @ 35 mls/hr 05/29/19 20:00 Nacl 0.9% 1000 Ml EKOSCLUMEN DIRECT ROE Heparin Sodium/Sodium Chloride 25,000 unit in 500 mls @ 10 mls/hr 05/29/19 20:00 05/29/19 21:39 Heparin/ 0.45% Nacl-25,000 Unit/500 Ml SHEATH 10 mls DIRECT ROE Administration Protocol 500 UNITS/HR Vancomycin HCl 1,250 mg/ 275 mls @ 183.333 mls/hr 05/30/19 08:00 05/30/19 08:40 Sodium Chloride IV 183.333 mls/hr Q12H ROE Administration Ceftriaxone Sodium 2 gm in 100 mls @ 200 mls/hr 05/30/19 10:00 05/30/19 09:48 Rocephin/Ns 2 Gm/100 Ml IV 200 mls/hr Q24HR ROE Administration Protocol Morphine Sulfate 4 mg 05/29/19 19:36 05/30/19 08:17 Morphine IV 4 mg Q4H PRN Administration Pain , Severe (7-10) Morphine Sulfate 2 mg 05/29/19 19:36 05/30/19 07:17 Morphine IV 2 mg Q4H PRN Administration Pain, Moderate (4-6) Ondansetron HCl 4 mg 05/29/19 18:22 Zofran IV Q8H PRN Nausea And Vomiting Oxycodone/Acetaminophen 1 tab 05/29/19 18:22 05/30/19 06:11 Percocet 5/325 PO 1 tab Q6H PRN Administration Pain, Moderate (4-6) Sodium Chloride 10 ml 05/29/19 22:00 05/30/19 09:52 Sodium Chloride Flush Syringe 10 Ml IV 10 ml BID ROE Administration Sodium Chloride 10 ml 05/29/19 18:22 Sodium Chloride Flush Syringe 10 Ml IV PRN PRN LINE FLUSH
[2019-05-30] MEDS ORDERED: MORPHINE 2 MG/1 ML INJ IV PRN (10:22)
[2019-05-30] MEDS: MORPHINE 4 MG/1 ML INJ IV PRN ×3 (10:28→19:35)
--- NOTE | 2019-05-30 10:44 | Progress Note ---
Assessment and Plan Patient will return to the [facility] for potential mechanical thrombectomy of her left lower extremity. Would suspect that her clot shifted somewhat and is now engaging the filter. There does not appear to be arterial compromise over, the patient has a significant thrombus burden. We'll also type and cross the patient for potential transfusion depending on the degree of thrombectomy needed. Subjective Date of service: 05/30/19 Principal diagnosis: left lower extremity DVT Interval history: Patient is status post placement of thrombo-lytics catheter with overnight infusion of TPA. Patient states that her leg pain initially had decreased somewhat however is now worsening with a feeling of pressure in her thigh, not her calf or foot. Patient does have palpable pedal pulses. Objective - Constitutional Vitals: Vital Signs - 12hr 05/29/19 05/29/19 05/29/19 22:45 23:00 23:15 Temperature Pulse Rate 98 H 107 H 113 H Pulse Rate [ From Monitor] Respiratory 12 22 17 Rate Blood Pressure 184/97 172/101 148/97 O2 Sat by Pulse 96 96 94 Oximetry 05/29/19 05/29/19 05/29/19 23:30 23:40 23:44 Temperature Pulse Rate 119 H 114 H Pulse Rate [ 112 H From Monitor] Respiratory 17 18 16 Rate Blood Pressure 173/95 131/86 O2 Sat by Pulse 96 98 98 Oximetry 05/29/19 05/30/19 05/30/19 23:45 00:00 00:15 Temperature 98.8 F Pulse Rate 114 H 113 H 103 H Pulse Rate [ From Monitor] Respiratory 15 11 L 10 L Rate Blood Pressure 134/92 143/92 138/97 O2 Sat by Pulse 96 96 98 Oximetry 05/30/19 05/30/19 05/30/19 00:30 00:45 01:00 Temperature Pulse Rate 108 H 110 H 107 H Pulse Rate [ 99 H From Monitor] Respiratory 18 23 18 Rate Blood Pressure 144/95 137/94 135/88 O2 Sat by Pulse 97 97 98 Oximetry 05/30/19 05/30/19 05/30/19 01:15 01:30 01:45 Temperature Pulse Rate 105 H 105 H 104 H Pulse Rate [ From Monitor] Respiratory 13 19 19 Rate Blood Pressure 142/91 144/101 146/97 O2 Sat by Pulse 96 97 95 Oximetry 05/30/19 05/30/19 05/30/19 02:00 02:15 02:30 Temperature Pulse Rate 108 H 107 H 111 H Pulse Rate [ From Monitor] Respiratory 17 17 16 Rate Blood Pressure 142/98 133/98 130/82 O2 Sat by Pulse 96 97 97 Oximetry 05/30/19 05/30/19 05/30/19 02:45 03:00 03:15 Temperature Pulse Rate 101 H 101 H 102 H Pulse Rate [ 101 H From Monitor] Respiratory 20 16 22 Rate Blood Pressure 148/100 156/100 141/98 O2 Sat by Pulse 97 97 97 Oximetry 05/30/19 05/30/19 05/30/19 03:30 03:38 03:45 Temperature 98.1 F Pulse Rate 107 H 113 H Pulse Rate [ From Monitor] Respiratory 21 20 Rate Blood Pressure 133/91 132/87 O2 Sat by Pulse 96 96 Oximetry 05/30/19 05/30/19 05/30/19 04:00 04:15 04:30 Temperature Pulse Rate 114 H 118 H 114 H Pulse Rate [ From Monitor] Respiratory 21 18 13 Rate Blood Pressure 133/89 134/90 131/80 O2 Sat by Pulse 96 95 94 Oximetry 05/30/19 05/30/19 05/30/19 04:45 05:00 05:15 Temperature Pulse Rate 112 H 112 H 112 H Pulse Rate [ 101 H From Monitor] Respiratory 19 21 20 Rate Blood Pressure 127/78 122/79 126/80 O2 Sat by Pulse 95 95 97 Oximetry 05/30/19 05/30/19 05/30/19 05:30 05:45 06:00 Temperature Pulse Rate 95 H 101 H 103 H Pulse Rate [ From Monitor] Respiratory 18 19 13 Rate Blood Pressure 122/82 145/99 136/95 O2 Sat by Pulse 98 97 97 Oximetry 05/30/19 05/30/19 05/30/19 06:15 06:30 06:45 Temperature Pulse Rate 106 H 97 H 95 H Pulse Rate [ From Monitor] Respiratory 12 13 15 Rate Blood Pressure 137/96 143/99 154/98 O2 Sat by Pulse 98 97 Oximetry 05/30/19 05/30/19 05/30/19 07:00 07:15 07:30 Temperature Pulse Rate 97 H 104 H 100 H Pulse Rate [ From Monitor] Respiratory 15 16 22 Rate Blood Pressure 149/97 142/94 151/98 O2 Sat by Pulse 96 96 94 Oximetry 05/30/19 05/30/1905/30/19 07:45 07:49 08:00 Temperature 98.3 F Pulse Rate 98 H 101 H Pulse Rate [ 101 H From Monitor] Respiratory 22 21 Rate Blood Pressure 156/99 159/101 O2 Sat by Pulse 94 97 94 Oximetry 05/30/19 05/30/19 05/30/19 08:15 08:17 08:30 Temperature Pulse Rate 105 H 115 H 121 H Pulse Rate [ From Monitor] Respiratory 19 20 Rate Blood Pressure 168/111 168/111 143/91 O2 Sat by Pulse 95 94 Oximetry 05/30/19 05/30/19 05/30/19 08:45 09:00 09:15 Temperature Pulse Rate 121 H 126 H 121 H Pulse Rate [ From Monitor] Respiratory 19 20 16 Rate Blood Pressure 151/96 153/94 152/97 O2 Sat by Pulse 94 94 95 Oximetry 05/30/19 05/30/19 05/30/19 09:30 09:45 10:00 Temperature Pulse Rate 120 H 122 H 122 H Pulse Rate [ From Monitor] Respiratory 18 14 12 Rate Blood Pressure 155/102 149/93 151/97 O2 Sat by Pulse 94 95 Oximetry 05/30/19 10:15 Temperature Pulse Rate 117 H Pulse Rate [ From Monitor] Respiratory 10 L Rate Blood Pressure 164/99 O2 Sat by Pulse 98 Oximetry General appearance: Present: no acute distress - EENT Eyes: EOM intact ENT: hearing intact - Neck Neck: supple, normal ROM - Respiratory Respiratory effort: normal - Breasts Breasts: deferred Extremities: pulses intact, abnormal Extremity abnormal: edema - Gastrointestinal General gastrointestinal: Present: deferred Rectal Exam: deferred - Genitourinary Female genitourinary: deferred - Psychiatric Psychiatric: appropriate mood/affect, cooperative - Labs CBC & Chem 7: 05/30/19 06:20 05/30/19 06:20 Labs: Abnormal lab results 05/29/19 05/29/19 05/29/19 Range/Units 17:36 17:36 17:36 WBC 26.3 H (4.5-11.0) K/mm3 [place] # (0.0-0.8) K/mm3 Seg Neutrophils % (40.0-70.0) % Seg Neuts % (Manual) 87.0 H (40.0-70.0) % Lymphocytes % (Manual) 8.0 L (13.4-35.0) % Seg Neutrophils # (1.8-7.7) K/mm3 Seg Neutrophils # Man 22.9 H (1.8-7.7) K/mm3 Monocytes # (Manual) 1.3 H (0.0-0.8) K/mm3 Fibrinogen 528 H (211-480) mg/dl Heparin Anti-Xa Level (0.3-0.7) U.I./ml Sodium (137-145) mmol/L Chloride (98-107) mmol/L Carbon Dioxide 18 L (22-30) mmol/L Glucose 132 H (65-100) mg/dL Lactic Acid (0.7-2.0) mmol/L Urine WBC (Auto) (0.0-6.0) /HPF U Epithel Cells (Auto) (0-13.0) /HPF 05/29/19 05/29/19 05/29/19 Range/Units 18:56 19:48 19:51 WBC (4.5-11.0) K/mm3 [place] # (0.0-0.8) K/mm3 Seg Neutrophils % (40.0-70.0) % Seg Neuts % (Manual) (40.0-70.0) % Lymphocytes % (Manual) (13.4-35.0) % Seg Neutrophils # (1.8-7.7) K/mm3 Seg Neutrophils # Man (1.8-7.7) K/mm3 Monocytes # (Manual) (0.0-0.8) K/mm3 Fibrinogen 512 H (211-480) mg/dl Heparin Anti-Xa Level (0.3-0.7) U.I./ml Sodium (137-145) mmol/L Chloride (98-107) mmol/L Carbon Dioxide (22-30) mmol/L Glucose (65-100) mg/dL Lactic Acid 2.10 H* (0.7-2.0) mmol/L Urine WBC (Auto) 42.0 H (0.0-6.0) /HPF U Epithel Cells (Auto) 32.0 H (0-13.0) /HPF 05/29/19 05/29/19 05/30/19 Range/Units 22:50 22:50 00:55 WBC 20.7 H 19.8 H (4.5-11.0) K/mm3 [place] # 1.0 H (0.0-0.8) K/mm3 Seg Neutrophils % 79.5 H (40.0-70.0) % Seg Neuts % (Manual) 82.0 H (40.0-70.0) % Lymphocytes % (Manual) (13.4-35.0) % Seg Neutrophils # 15.7 H (1.8-7.7) K/mm3 Seg Neutrophils # Man 17.0 H (1.8-7.7) K/mm3 Monocytes # (Manual) (0.0-0.8) K/mm3 Fibrinogen (211-480) mg/dl Heparin Anti-Xa Level (0.3-0.7) U.I./ml Sodium 136 L (137-145) mmol/L Chloride 97.7 L (98-107) mmol/L Carbon Dioxide 20 L (22-30) mmol/L Glucose 102 H (65-100) mg/dL Lactic Acid (0.7-2.0) mmol/L Urine WBC (Auto) (0.0-6.0) /HPF U Epithel Cells (Auto) (0-13.0) /HPF 05/30/19 05/30/19 05/30/19 Range/Units 00:55 06:20 06:20 WBC 16.8 H (4.5-11.0) K/mm3 [place] # 1.0 H (0.0-0.8) K/mm3 Seg Neutrophils % 78.2 H (40.0-70.0) % Seg Neuts % (Manual) (40.0-70.0) % Lymphocytes % (Manual) (13.4-35.0) % Seg Neutrophils # 13.2 H (1.8-7.7) K/mm3 Seg Neutrophils # Man (1.8-7.7) K/mm3 Monocytes # (Manual) (0.0-0.8) K/mm3 Fibrinogen (211-480) mg/dl Heparin Anti-Xa Level 0.14 L (0.3-0.7) U.I./ml Sodium (137-145) mmol/L Chloride (98-107) mmol/L Carbon Dioxide 21 L (22-30) mmol/L Glucose 127 H (65-100) mg/dL Lactic Acid (0.7-2.0) mmol/L Urine WBC (Auto) (0.0-6.0) /HPF U Epithel Cells (Auto) (0-13.0) /HPF 05/30/19 Range/Units 06:20 WBC (4.5-11.0) K/mm3 [place] # (0.0-0.8) K/mm3 Seg Neutrophils % (40.0-70.0) % Seg Neuts % (Manual) (40.0-70.0) % Lymphocytes % (Manual) (13.4-35.0) % Seg Neutrophils # (1.8-7.7) K/mm3 Seg Neutrophils # Man (1.8-7.7) K/mm3 Monocytes # (Manual) (0.0-0.8) K/mm3 Fibrinogen 139 L (211-480) mg/dl Heparin Anti-Xa Level 0.10 L (0.3-0.7) U.I./ml Sodium (137-145) mmol/L Chloride (98-107) mmol/L Carbon Dioxide (22-30) mmol/L Glucose (65-100) mg/dL Lactic Acid (0.7-2.0) mmol/L Urine WBC (Auto) (0.0-6.0) /HPF U Epithel Cells (Auto) (0-13.0) /HPF Medications & Allergies - Medications Allergies/Adverse Reactions: Allergies No Known Allergies Allergy (Unverified 05/07/19 01:33) Home Medications: Home Medications Medication Instructions Recorded Confirmed Last Taken Type Cyclobenzaprine [Flexeril] 10 mg PO TID PRN #30 tablet 05/07/19 05/29/19 05/29/19 Rx Menthol/Camphor [[place] 1 applicatio TP QID PRN #1 tube 05/07/19 05/29/19 05/29/19 Rx Ointment] Naproxen 500 mg PO BID PRN #30 tablet 05/07/19 05/29/19 05/29/19 Rx Active Medications: Generic Name Dose Route Start Last Admin Trade Name Freq PRN Reason Stop Dose Admin Acetaminophen 650 mg 05/29/19 18:22 Tylenol PO Q4H PRN Pain MILD(1-3)/Fever >100.5/ARAGON Acetaminophen/Hydrocodone Bitart 2 each 05/29/19 19:36 [place] 5/325 PO Q6H PRN Pain, Moderate (4-6) Albuterol 2.5 mg 05/29/19 18:22 Proventil IH Q4H PRN Shortness Of Breath Hydralazine HCl 10 mg 05/29/19 22:43 05/30/19 08:17 Apresoline IV 10 mg Q6H PRN Administration Blood Pressure Sodium Chloride 1,000 mls @ 30 mls/hr 05/29/19 20:00 05/30/19 08:18 Nacl 0.9% 1000 Ml IV 30 mls/hr DIRECT ROE Administration Alteplase, Recombinant 20 mg/ 500 mls @ 25 mls/hr 05/29/19 20:00 05/30/19 08:29 Sodium Chloride EKOSDLUMEN 0 mls/hr DIRECT ROE Infusion Sodium Chloride 1,000 mls @ 30 mls/hr 05/29/19 20:00 05/29/19 21:39 Nacl 0.9% 1000 Ml SHEATH 30 mls DIRECT ROE Administration Sodium Chloride 1,000 mls @ 35 mls/hr 05/29/19 20:00 Nacl 0.9% 1000 Ml EKOSCLUMEN DIRECT ROE Heparin Sodium/Sodium Chloride 25,000 unit in 500 mls @ 10 mls/hr 05/29/19 20:00 05/29/19 21:39 Heparin/ 0.45% Nacl-25,000 Unit/500 Ml SHEATH 10 mls DIRECT ROE Administration Protocol 500 UNITS/HR Vancomycin HCl 1,250 mg/ 275 mls @ 183.333 mls/hr 05/30/19 08:00 05/30/19 0 8:40 Sodium Chloride IV 183.333 mls/hr Q12H ROE Administration Ceftriaxone Sodium 2 gm in 100 mls @ 200 mls/hr 05/30/19 10:00 05/30/19 09:48 Rocephin/Ns 2 Gm/100 Ml IV 200 mls/hr Q24HR ROE Administration Protocol Morphine Sulfate 2 mg 05/30/19 10:22 Morphine IV Q2H PRN Pain, Moderate (4-6) Morphine Sulfate 4 mg 05/30/19 10:22 05/30/19 10:28 Morphine IV 4 mg Q2H PRN Administration Pain , Severe (7-10) Ondansetron HCl 4 mg 05/29/19 18:22 Zofran IV Q8H PRN Nausea And Vomiting Oxycodone/Acetaminophen 1 tab 05/29/19 18:22 05/30/19 06:11 Percocet 5/325 PO 1 tab Q6H PRN Administration Pain, Moderate (4-6) Sodium Chloride 10 ml 05/29/19 22:00 05/30/19 09:52 Sodium Chloride Flush Syringe 10 Ml IV 10 ml BID ROE Administration Sodium Chloride 10 ml 05/29/19 18:22 Sodium Chloride Flush Syringe 10 Ml IV PRN PRN LINE FLUSH
[2019-05-30] MEDS ORDERED: HEPARIN/NS 5000 UNIT/500ML 1,000 ML IR ONE ×2 (11:10→12:19)
[2019-05-30] MEDS ORDERED: HEPARIN 10,000 UNITS/10 ML VIAL ONE (11:10)
[2019-05-30] MEDS: MIDAZOLAM 2 MG/2 ML INJ ONE ×2 (11:36→12:07)
[2019-05-30] MEDS: fentaNYL 100 MCG/2 ML INJ ONE ×3 (11:36→12:30)
[2019-05-30] MEDS: LIDOCAINE (2%) 20 MG/1 ML VIAL 20 ML MDV INFILTRATI ONE ×2 (11:38→11:47)
[2019-05-30] MEDS ORDERED: HEPARIN/NS 5000 UNIT/500ML 500 ML IR ONE (11:59)
[2019-05-30] MEDS ORDERED: MIDAZOLAM 2 MG/2 ML INJ ONE (12:29)
--- NOTE | 2019-05-30 12:59 | Operative Report ---
Operative Report Operative Report: Exam: Removal of thrombolytics catheter, mechanical thrombectomy of left lower extremity and IVC Clinical indication: Patient with ilealcaval and iliofemoral DVT Date: 05/30/2019 Procedure: Following an explanation of the risks, benefits and alternatives; written informed consent was obtained. The patient returned to the angiographic suite and was placed in prone position on the examination table. Initial fluoroscopic images demonstrated appropriate positioning of the patient's previously placed IVC filter and the throb lytics catheter. The patient's popliteal fossa and indwelling sheath and catheter were prepped and draped in the usual sterile fashion. 1% lidocaine was used for anesthesia at the sheath insertion site. The sutures were cut and the thrombolytics catheter wire removed. Contrast was injected through the catheter which demonstrates a thrombus extending from the IVC to the common femoral vein. The throbolytics catheter was removed over a guidewire. Contrast injected to the sheath demonstrates resolution of the thrombus within the femoral vein. With the guidewire and the IVC, the sheath was upsized to an 8 [place] sheath. Mechanical thrombectomy was performed first using an 8 [place] AngioJet mechanical thrombectomy device. Aspiration thrombectomy was then performed using an 8 [place] MPA guide catheter. Multiple passes of both the AngioJet and guide cath were performed with sequential resolution of the thrombus. Ultimately, balloon maceration was also performed using an 14 mm x 40 mm balloon insufflated to nominal atmospheres in the common iliac vein. Following mechanical thrombectomy and venoplasty, contrast was injected to the MPA catheter with the tip placed in the femoral vein. This demonstrates resolution of the common femoral vein thrombus. There is scattered areas of mural thrombus in the sternal iliac vein. Some residual thrombus is present within the filter. Aspiration thrombectomy was performed within the IVC filter an additional angiography performed which demonstrates decreased thrombus burden and brisk flow throughout iliocaval system. 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 The catheter was removed. The sheath was removed from the popliteal fossa and hemostasis achieved using manual compression and a sterile compression dressing. Patient tolerated the procedure well. There were no immediate post procedure complications. Conscious sedation was performed under the guidance or radiologic nursing. Continuous cardiopulmonary monitoring was utilized. Impression: 1) Removal of indwelling thrombolytics catheter. 2) Venography of the left lower extremity demonstrating resolution of thrombus within the femoral vein however, there is persistent thrombus within the common femoral vein to IVC. 3) Mechanical thrombectomy using AngioJet mechanical thrombectomy device as well as 8 [place] MPA and balloon maceration using a 14 mm balloon. 4) Post thrombectomy venography demonstrating patent iliocaval veins with scattered areas of residual thrombus.
[2019-05-30] MEDS ORDERED: ONDANSETRON 4 MG/2 ML INJ ONE (13:55)
[2019-05-30] MEDS ORDERED: HEPARIN/ 0.45% NACL DRIP 25,000 UNIT/500 ML BAG IV SCH (14:00)
[2019-05-30 15:43] LABS: INR 1.32 (0.87-1.13)
[2019-05-30 15:49] LABS: Hematocrit 36.9 % (30.3-42.9)
[2019-05-30 15:49] LABS: Hematocrit 36.6 % (30.3-42.9); Hemoglobin 12.1 gm/dl (10.1-14.3); Mean Corpuscular HGB Conc 33 % (30-34); Mean Corpuscular Volume 86 fl (79-97); Platelet Count 183 K/mm3 (140-440); Red Blood Count 4.26 M/mm3 (3.65-5.03); Red Cell Distribution Width 13.5 % (13.2-15.2)
[2019-05-30 16:00] LABS: Partial Thromboplastin Time 65.8 Sec. (24.2-36.6)
[2019-05-30 17:00] LABS: Basophils % (Manual) 0 % (0.0-1.8); Eosinophils % (Manual) 0 % (0.0-4.3); Platelet Estimate Consistent w Auto; RBC Morphology Normal; Total Cells Counted 100
[2019-05-31] MEDS: HEPARIN/ 0.45% NACL DRIP 25,000 UNIT/500 ML BAG SHEATH SCH (01:44)
[2019-05-31] MEDS: oxyCODONE /ACETAMINOPHEN 5-325MG TAB PO PRN (02:04)
[2019-05-31 05:30] LABS: BUN/Creatinine Ratio 8; Blood Urea Nitrogen 5 mg/dL (7-17); Hemolysis Index 2
[2019-05-31] MEDS: MORPHINE 4 MG/1 ML INJ IV PRN ×4 (06:02→21:03)
[2019-05-31] MEDS: HYDROcodone/ACETAMINOPHEN 5-325 MG TAB PO PRN (08:25)
[2019-05-31] MEDS: VANCOMYCIN 1,250 MG in SODIUM CHLORIDE 0.9% 250ML 250 ML IV SCH ×2 (08:26→22:27)
[2019-05-31] MEDS: cefTRIAXone/NS 2 GM/100 ML 2 GM/100 ML BAG IV SCH (09:44)
--- NOTE | 2019-05-31 10:04 | Progress Note ---
Assessment and Plan Patient is doing well following removal of her DVT. Patient will need to be placed on at least 6 months of oral anticoagulation. We'll initiate Eliquis today. 2 hours after the initiation of Eliquis, the patient may her heparin drip discontinued. 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 This will be scheduled as an outpatient. Additionally, the patient has an indwelling infrarenal IVC filter. This will need to be removed in approximately 3 months. The patient may be transferred out of the ICU today. Encouraged ambulation. Subjective Date of service: 05/31/19 Principal diagnosis: left lower extremity DVT Interval history: The patient doing well following thrombolysis and mechanical thrombectomy. Patient complaining of less pain and swelling in her left lower extremity. She has not yet been out of bed. Pressure dressing removed with expected popliteal fossa hematoma. Objective - Constitutional Vitals: Vital Signs - 12hr 05/30/19 05/30/19 05/31/19 23:00 23:02 00:00 Temperature 99.0 F Pulse Rate 116 H 126 H 118 H Pulse Rate [ From Monitor] Pulse Rate [ 118 H Left Dorsalis Pedis] Pulse Rate [ 118 H Right Dorsalis Pedis] Respiratory 13 16 23 Rate Blood Pressure 130/84 144/92 O2 Sat by Pulse 96 98 96 Oximetry 05/31/19 05/31/19 05/31/19 00:19 01:00 02:00 Temperature Pulse Rate 118 H 121 H 124 H Pulse Rate [ From Monitor] Pulse Rate [ Left Dorsalis Pedis] Pulse Rate [ Right Dorsalis Pedis] Respiratory 24 23 Rate Blood Pressure 132/78 128/68 O2 Sat by Pulse 92 94 Oximetry 05/31/19 05/31/19 05/31/19 02:04 03:00 04:00 Temperature 98.9 F Pulse Rate 119 H 113 H Pulse Rate [ From Monitor] Pulse Rate [ 118 H Left Dorsalis Pedis] Pulse Rate [ 118 H Right Dorsalis Pedis] Respiratory 21 25 H 19 Rate Blood Pressure 128/83 127/82 O2 Sat by Pulse 94 95 Oximetry 05/31/19 05/31/19 05/31/19 04:08 05:00 06:00 Temperature Pulse Rate 118 H 114 H 114 H Pulse Rate [ From Monitor] Pulse Rate [ Left Dorsalis Pedis] Pulse Rate [ Right Dorsalis Pedis] Respiratory 18 15 Rate Blood Pressure 121/84 130/78 O2 Sat by Pulse 98 97 Oximetry 05/31/19 05/31/19 05/31/19 06:02 07:00 08:00 Temperature 98.1 F Pulse Rate 109 H 120 H Pulse Rate [ 120 H From Monitor] Pulse Rate [ Left Dorsalis Pedis] Pulse Rate [ Right Dorsalis Pedis] Respiratory 14 19 11 L Rate Blood Pressure 131/90 130/80 O2 Sat by Pulse 96 100 Oximetry 05/31/19 09:00 Temperature Pulse Rate 113 H Pulse Rate [ From Monitor] Pulse Rate [ Left Dorsalis Pedis] Pulse Rate [ Right Dorsalis Pedis] Respiratory 17 Rate Blood Pressure 136/78 O2 Sat by Pulse 95 Oximetry General appearance: Present: no acute distress - EENT Eyes: EOM intact ENT: hearing intact - Neck Neck: supple, normal ROM - Respiratory Respiratory effort: normal - Breasts Breasts: deferred - Cardiovascular Rhythm: regular Extremities: abnormal Extremity abnormal: edema (LLE) - Gastrointestinal General gastrointestinal: Present: deferred Rectal Exam: deferred - Genitourinary Female genitourinary: deferred - Neurologic Neurologic: moves all extremities - Psychiatric Psychiatric: appropriate mood/affect, cooperative - Labs CBC & Chem 7: 05/30/19 15:21 05/31/19 04:42 Labs: Abnormal lab results 05/30/19 05/30/19 05/31/19 Range/Units 15:05 15:21 04:42 WBC 20.7 H (4.5-11.0) K/mm3 Seg Neuts % (Manual) 87.0 H (40.0-70.0) % Lymphocytes % (Manual) 9.0 L (13.4-35.0) % Seg Neutrophils # Man 18.0 H (1.8-7.7) K/mm3 PT 16.2 H (12.2-14.9) Sec. INR 1.32 H (0.87-1.13) APTT 65.8 H* (24.2-36.6) Sec. Fibrinogen 155 L (211-480) mg/dl Heparin Anti-Xa Level 0.14 L (0.3-0.7) U.I./ml Potassium 3.5 L (3.6-5.0) mmol/L BUN 5 L (7-17) mg/dL Creatinine 0.6 L (0.7-1.2) mg/dL Glucose 122 H (65-100) mg/dL Calcium 8.0 L (8.4-10.2) mg/dL Medications & Allergies - Medications Allergies/Adverse Reactions: Allergies No Known Allergies Allergy (Unverified 05/07/19 01:33) Home Medications: Home Medications Medication Instructions Recorded Confirmed Last Taken Type Cyclobenzaprine [Flexeril] 10 mg PO TID PRN #30 tablet 05/07/19 05/29/19 05/29/19 Rx Menthol/Camphor [[place] 1 applicatio TP QID PRN #1 tube 05/07/19 05/29/19 05/29/19 Rx Ointment] Naproxen 500 mg PO BID PRN #30 tablet 05/07/19 05/29/19 05/29/19 Rx Active Medications: Generic Name Dose Route Start Last Admin Trade Name Freq PRN Reason Stop Dose Admin Acetaminophen 650 mg 05/29/19 18:22 Tylenol PO Q4H PRN Pain MILD(1-3)/Fever >100.5/ARAGON Acetaminophen/Hydrocodone Bitart 2 each 05/29/19 19:36 05/31/19 08:25 [place] 5/325 PO 2 each Q6H PRN Administration Pain, Moderate (4-6) Albuterol 2.5 mg 05/29/19 18:22 Proventil IH Q4H PRN Shortness Of Breath Hydralazine HCl 10 mg 05/29/19 22:43 05/30/19 14:36 Apresoline IV 10 mg Q6H PRN Administration Blood Pressure Vancomycin HCl 1,250 mg/ 275 mls @ 183.333 mls/hr 05/30/19 08:00 05/31/19 08:26 Sodium Chloride IV 183.333 mls/hr Q12H ROE Administration Ceftriaxone Sodium 2 gm in 100 mls @ 200 mls/hr 05/30/19 10:00 05/31/19 09:44 Rocephin/Ns 2 Gm/100 Ml IV 200 mls/hr Q24HR ROE Administration Protocol Heparin Sodium/Sodium Chloride 25,000 unit in 500 mls @ 30 mls/hr 05/30/19 14:00 05/30/19 21:09 Heparin/ 0.45% Nacl-25,000 Unit/500 Ml IV 1,500 units/hr TITR ROE 30 mls/hr Titration Protocol 1,500 UNITS/HR Morphine Sulfate 2 mg 05/30/19 10:22 05/30/19 14:40 Morphine IV 2 mg Q2H PRN Administration Pain, Moderate (4-6) Morphine Sulfate 4 mg 05/30/19 10:22 05/31/19 06:02 Morphine IV 4 mg Q2H PRN Administration Pain , Severe (7-10) Ondansetron HCl 4 mg 05/29/19 18:22 Zofran IV Q8H PRN Nausea And Vomiting Oxycodone/Acetaminophen 1 tab 05/29/19 18:22 05/31/19 02:04 Percocet 5/325 PO 1 tab Q6H PRN Administration Pain, Moderate (4-6) Sodium Chloride 10 ml 05/29/19 22:00 05/31/19 09:45 Sodium Chloride Flush Syringe 10 Ml IV 10 ml BID ROE Administration Sodium Chloride 10 ml 05/29/19 18:22 Sodium Chloride Flush Syringe 10 Ml IV PRN PRN LINE FLUSH
[2019-05-31] MEDS: APIXABAN 5 MG TAB PO SCH ×2 (10:41→21:05)
--- NOTE | 2019-05-31 11:20 | Progress Note ---
Assessment and Plan Assessment and plan: Sepsis Sepsis protocol: Urinalysis, Influenza A and B, CBC, CMP, Chest X ray, serial lactic acid level, IVF resuscitation therapy, IV antibiotic therapy. On Ceftriaxone and vancomycin DVT left lower ext s/p IVC filter placement, EKOS catheter placenment and thrombolysis, removal of EKOS catheter, mechanical thrombectomy Therapeutic anticoagulation, Hypercoagulable workup, heparin drip Obesity Balanced diet, increased physical activity ad discharge, Nicotine dependence with withdrawal +15min, smoking cessation counseling, supportive care. Acidosis Treat sepsis, serial lactic acid level, supportive care. IVF resuscitation therapy. UTI On Ceftriaxone Urine culture growing Gram neg rods History Interval history: Left lower ext pain, diagnosed with DVT s/p IVC filter placement, EKOS catheter placement, s/p mechanical thrombectomy Hospitalist Physical - Physical exam Narrative exam: Gen: Not in acute distress, lying in bed,morbidly obese HEENT: Normocephalic, atraumatic Neck: supple, no JVD Heart: S1 and S2 reg, no murmurs, rubs or gallop Lungs: Clear to auscultation, Abd: soft, non tender, non distended, normal BS, Ext: No edema, no clubbing, no cyanosis Neuro: Awake, alert, oriented X 3, normal speech. moves all ext - Constitutional Vitals: Temp Pulse Resp BP Pulse Ox 98.1 F 100 H 18 139/87 98 05/31/19 08:00 05/31/19 11:00 05/31/19 11:00 05/31/19 11:00 05/31/19 10:00 General appearance: Present: no acute distress Results - Labs CBC & Chem 7: 05/30/19 15:21 05/31/19 04:42 Labs: Laboratory Last Values WBC 20.7 K/mm3 (4.5-11.0) H 05/30/19 15:21 RBC 4.26 M/mm3 (3.65-5.03) 05/30/19 15:21 Hgb 12.1 gm/dl (10.1-14.3) 05/30/19 15:21 Hct 36.6 % (30.3-42.9) 05/30/19 15:21 MCV 86 fl (79-97) 05/30/19 15:21 MCH 28 pg (28-32) 05/30/19 15:21 MCHC 33 % (30-34) 05/30/19 15:21 RDW 13.5 % (13.2-15.2) 05/30/19 15:21 Plt Count 183 K/mm3 (140-440) 05/30/19 15:21 Lymph % (Auto) 15.7 % (13.4-35.0) 05/30/19 06:20 [place] % (Auto) 5.7 % (0.0-7.3) 05/30/19 06:20 Eos % (Auto) 0.2 % (0.0-4.3) 05/30/19 06:20 Baso % (Auto) 0.2 % (0.0-1.8) 05/30/19 06:20 Lymph # 2.6 K/mm3 (1.2-5.4) 05/30/19 06:20 [place] # 1.0 K/mm3 (0.0-0.8) H 05/30/19 06:20 Eos # 0.0 K/mm3 (0.0-0.4) 05/30/19 06:20 Baso # 0.0 K/mm3 (0.0-0.1) 05/30/19 06:20 Add Manual Diff Complete 05/30/19 15:21 Total Counted 100 05/30/19 15:21 Seg Neutrophils % 78.2 % (40.0-70.0) H 05/30/19 06:20 Seg Neuts % (Manual) 87.0 % (40.0-70.0) H 05/30/19 15:21 Band Neutrophils % 0 % 05/30/19 15:21 Lymphocytes % (Manual) 9.0 % (13.4-35.0) L 05/30/19 15:21 Reactive Lymphs % (Man) 1.0 % 05/30/19 15:21 Monocytes % (Manual) 3.0 % (0.0-7.3) 05/30/19 15:21 Eosinophils % (Manual) 0 % (0.0-4.3) 05/30/19 15:21 Basophils % (Manual) 0 % (0.0-1.8) 05/30/19 15:21 Metamyelocytes % 0 % 05/30/19 15:21 Myelocytes % 0 % 05/30/19 15:21 Promyelocytes % 0 % 05/30/19 15:21 Blast Cells % 0 % 05/30/19 15:21 Nucleated RBC % Not Reportable 05/30/19 15:21 Seg Neutrophils # 13.2 K/mm3 (1.8-7.7) H 05/30/19 06:20 Seg Neutrophils # Man 18.0 K/mm3 (1.8-7.7) H 05/30/19 15:21 Band Neutrophils # 0.0 K/mm3 05/30/19 15:21 Lymphocytes # (Manual) 1.9 K/mm3 (1.2-5.4) 05/30/19 15:21 Abs React Lymphs (Man) 0.2 K/mm3 05/30/19 15:21 Monocytes # (Manual) 0.6 K/mm3 (0.0-0.8) 05/30/19 15:21 Eosinophils # (Manual) 0.0 K/mm3 (0.0-0.4) 05/30/19 15:21 Basophils # (Manual) 0.0 K/mm3 (0.0-0.1) 05/30/19 15:21 Metamyelocytes # 0.0 K/mm3 05/30/19 15:21 Myelocytes # 0.0 K/mm3 05/30/19 15:21 Promyelocytes # 0.0 K/mm3 05/30/19 15:21 Blast Cells # 0.0 K/mm3 05/30/19 15:21 WBC Morphology Not Reportable 05/30/19 15:21 Hypersegmented Neuts Not Reportable 05/30/19 15:21 Hyposegmented Neuts Not Reportable 05/30/19 15:21 Hypogranular Neuts Not Reportable 05/30/19 15:21 Smudge Cells Not Reportable 05/30/19 15:21 Toxic Granulation Not Reportable 05/30/19 15:21 Toxic Vacuolation Not Reportable 05/30/19 15:21 Dohle Bodies Not Reportable 05/30/19 15:21 Pelger-Huet Anomaly Not Reportable 05/30/19 15:21 Don Rods Not Reportable 05/30/19 15:21 Platelet Estimate Consistent w auto 05/30/19 15:21 Clumped Platelets Not Reportable 05/30/19 15:21 Plt Clumps, EDTA Not Reportable 05/30/19 15:21 Large Platelets Not Reportable 05/30/19 15:21 Giant Platelets Not Reportable 05/30/19 15:21 Platelet Satelliting Not Reportable 05/30/19 15:21 Plt Morphology Comment Not Reportable 05/30/19 15:21 RBC Morphology Normal 05/30/19 15:21 Dimorphic RBCs Not Reportable 05/30/19 15:21 Polychromasia Not Reportable 05/30/19 15:21 Hypochromasia Not Reportable 05/30/19 15:21 Poikilocytosis Not Reportable 05/30/19 15:21 Anisocytosis Not Reportable 05/30/19 15:21 Microcytosis Not Reportable 05/30/19 15:21 Macrocytosis Not Reportable 05/30/19 15:21 Spherocytes Not Reportable 05/30/19 15:21 Pappenheimer Bodies Not Reportable 05/30/19 15:21 Sickle Cells Not Reportable 05/30/19 15:21 Target Cells Not Reportable 05/30/19 15:21 Tear Drop Cells Not Reportable 05/30/19 15:21 Ovalocytes Not Reportable 05/30/19 15:21 Helmet Cells Not Reportable 05/30/19 15:21 [place] Bodies Not Reportable 05/30/19 15:21 [place] Rings Not Reportable 05/30/19 15:21 Ariadna Cells Not Reportable 05/30/19 15:21 Bite Cells Not Reportable 05/30/19 15:21 Crenated Cell Not Reportable 05/30/19 15:21 Elliptocytes Not Reportable 05/30/19 15:21 Acanthocytes (Spur) Not Reportable 05/30/19 15:21 Rouleaux Not Reportable 05/30/19 15:21 Hemoglobin C Crystals Not Reportable 05/30/19 15:21 Schistocytes Not Reportable 05/30/19 15:21 Malaria parasites Not Reportable 05/30/19 15:21 Miguel Bodies Not Reportable 05/30/19 15:21 Hem Pathologist Commnt No 05/30/19 15:21 PT 16.2 Sec. (12.2-14.9) H 05/30/19 15:05 INR 1.32 (0.87-1.13) H 05/30/19 15:05 APTT 65.8 Sec. (24.2-36.6) H* 05/30/19 15:05 Fibrinogen 155 mg/dl (211-480) L 05/30/19 15:05 Heparin Anti-Xa Level 0.30 U.I./ml (0.3-0.7) 05/30/19 19:32 Sodium 137 mmol/L (137-145) 05/31/19 04:42 Potassium 3.5 mmol/L (3.6-5.0) L 05/31/19 04:42 Chloride 104.0 mmol/L (98-107) 05/31/19 04:42 Carbon Dioxide 22 mmol/L (22-30) 05/31/19 04:42 Anion Gap 15 mmol/L 05/31/19 04:42 BUN 5 mg/dL (7-17) L 05/31/19 04:42 Creatinine 0.6 mg/dL (0.7-1.2) L 05/31/19 04:42 Estimated GFR > 60 ml/min 05/31/19 04:42 BUN/Creatinine Ratio 8 % 05/31/19 04:42 Glucose 122 mg/dL (65-100) H 05/31/19 04:42 Lactic Acid 1.20 mmol/L (0.7-2.0) 05/30/19 00:55 Calcium 8.0 mg/dL (8.4-10.2) L 05/31/19 04:42 Urine Color Yellow (Yellow) 05/29/19 19:48 Urine Turbidity Cloudy (Clear) 05/29/19 19:48 Urine pH 5.0 (5.0-7.0) 05/29/19 19:48 Ur Specific [place] 1.020 (1.003-1.030) 05/29/19 19:48 Urine Protein 100 mg/dl mg/dL (Negative) 05/29/19 19:48 Urine Glucose (UA) Neg mg/dL (Negative) 05/29/19 19:48 Urine Ketones Neg mg/dL (Negative) 05/29/19 19:48 Urine Blood Lg (Negative) 05/29/19 19:48 Urine Nitrite Neg (Negative) 05/29/19 19:48 Urine Bilirubin Neg (Negative) 05/29/19 19:48 Urine Urobilinogen < 2.0 mg/dL (<2.0) 05/29/19 19:48 Ur Leukocyte Esterase Sm (Negative) 05/29/19 19:48 Urine WBC (Auto) 42.0 /HPF (0.0-6.0) H 05/29/19 19:48 Urine RBC (Auto) 4.0 /HPF (0.0-6.0) 05/29/19 19:48 U Epithel Cells (Auto) 32.0 /HPF (0-13.0) H 05/29/19 19:48 Urine Bacteria (Auto) 4+ /HPF (Negative) 05/29/19 19:48 Urine Mucus 2+ /HPF 05/29/19 19:48 Urine Yeast (Budding) Few /HPF 05/29/19 19:48 Urine HCG, Qual Negative (Negative) 05/29/19 19:48 Blood Type A POSITIVE 05/30/19 15:15 Antibody Screen Negative 05/30/19 15:15 Active Medications - Current Medications Current Medications: Generic Name Dose Route Start Last Admin Trade Name Freq PRN Reason Stop Dose Admin Acetaminophen 650 mg 05/29/19 18:22 Tylenol PO Q4H PRN Pain MILD(1-3)/Fever >100.5/ARAGON Acetaminophen/Hydrocodone Bitart 2 each 05/29/19 19:36 05/31/19 08:25 [place] 5/325 PO 2 each Q6H PRN Administration Pain, Moderate (4-6) Albuterol 2.5 mg 05/29/19 18:22 Proventil IH Q4H PRN Shortness Of Breath Apixaban 10 mg 05/31/19 11:00 05/31/19 10:41 Eliquis PO 10 mg Q12HR ROE Administration Protocol Hydralazine HCl 10 mg 05/29/19 22:43 05/30/19 14:36 Apresoline IV 10 mg Q6H PRN Administration Blood Pressure Vancomycin HCl 1,250 mg/ 275 mls @ 183.333 mls/hr 05/30/19 08:00 05/31/19 08:26 Sodium Chloride IV 183.333 mls/hr Q12H ROE Administration Ceftriaxone Sodium 2 gm in 100 mls @ 200 mls/hr 05/30/19 10:00 05/31/19 09:44 Rocephin/Ns 2 Gm/100 Ml IV 200 mls/hr Q24HR ROE Administration Protocol Heparin Sodium/Sodium Chloride 25,000 unit in 500 mls @ 30 mls/hr 05/30/19 14:00 05/30/19 21:09 Heparin/ 0.45% Nacl-25,000 Unit/500 Ml IV 05/31/19 14:00 1,500 units/hr TITR ROE 30 mls/hr Titration Protocol 1,500 UNITS/HR Morphine Sulfate 2 mg 05/30/19 10:22 05/30/19 14:40 Morphine IV 2 mg Q2H PRN Administration Pain, Moderate (4-6) Morphine Sulfate 4 mg 05/30/19 10:22 05/31/19 06:02 Morphine IV 4 mg Q2H PRN Administration Pain , Severe (7-10) Ondansetron HCl 4 mg 05/29/19 18:22 Zofran IV Q8H PRN Nausea And Vomiting Oxycodone/Acetaminophen 1 tab 05/29/19 18:22 05/31/19 02:04 Percocet 5/325 PO 1 tab Q6H PRN Administration Pain, Moderate (4-6) Sodium Chloride 10 ml 05/29/19 22:00 05/31/19 09:45 Sodium Chloride Flush Syringe 10 Ml IV 10 ml BID ROE Administration Sodium Chloride 10 ml 05/29/19 18:22 Sodium Chloride Flush Syringe 10 Ml IV PRN PRN LINE FLUSH
[2019-06-01] MEDS: HYDROcodone/ACETAMINOPHEN 5-325 MG TAB PO PRN ×4 (00:02→22:19)
[2019-06-01 08:15] LABS: Basophils % (Auto) 0.3 % (0.0-1.8); Eosinophils # (Auto) 0.3 K/mm3 (0.0-0.4); Eosinophils % (Auto) 2.5 % (0.0-4.3); Hematocrit 24.2 % (30.3-42.9); Lymphocytes # (Auto) 2.8 K/mm3 (1.2-5.4); Lymphocytes % (Auto) 21.3 % (13.4-35.0); Mean Corpuscular HGB Conc 33 % (30-34); Mean Corpuscular Volume 86 fl (79-97); Monocytes % (Auto) 7.4 % (0.0-7.3); Platelet Count 140 K/mm3 (140-440); Red Blood Count 2.82 M/mm3 (3.65-5.03); Red Cell Distribution Width 13.3 % (13.2-15.2)
[2019-06-01 08:43] LABS: BUN/Creatinine Ratio 8; Blood Urea Nitrogen 4 mg/dL (7-17); Calcium 8.4 mg/dL (8.4-10.2); Hemolysis Index 0
[2019-06-01] MEDS: cefTRIAXone/NS 2 GM/100 ML 2 GM/100 ML BAG IV SCH (09:35)
[2019-06-01] MEDS: APIXABAN 5 MG TAB PO SCH ×2 (09:36→21:20)
[2019-06-01] MEDS: VANCOMYCIN 1,250 MG in SODIUM CHLORIDE 0.9% 250ML 250 ML IV SCH (09:45)
[2019-06-01 11:26] LABS: Hematocrit 23.2 % (30.3-42.9); Hemoglobin 7.7 gm/dl (10.1-14.3)
--- NOTE | 2019-06-01 14:00 | Progress Note ---
Assessment and Plan 28-year-old female on oral contraceptives to actively smokes with left lower extremity [id number] DVT status post lysis with thrombectomy. Patient has no pelvic discomfort. She has calf and thigh discomfort which feels "tight". Her pain is improving. Discussed IVY hose with patient. Ordered IVY hose. Discussed anticoagulation with case management. Explained concern that patient is without insurance. They will attempt to get patient Eliquis for 1 month. Told patient to obtain Eliquis through [employer] assistance program as soon as possible. Told patient that if she is getting close to running out of Eliquis, go to the emergency room at any hospital and do not allow yourself to lapse on anticoagulation. Discussed with patient she will need IVC filter removed by Dr. Wesley in the next few months. Patient understands. Proper use of medicine discussed with patient. Subjective Date of service: 06/01/19 Principal diagnosis: left lower extremity DVT Interval history: Palpable pedal pulses. Still has left lower extremity swelling. Pain has somewhat improved. Still has "tightness" of the left thigh. Patient has been elevating her leg inadequately. Discussed adequate elevation and positioned bed in appropriate position. Discussed IVY hose with patient. Objective - Constitutional Vitals: Vital Signs - 12hr 06/01/19 06/01/19 06/01/19 04:00 04:58 08:00 Temperature 98.3 F Pulse Rate 99 H 117 H 94 H Pulse Rate [ From Monitor] Respiratory 18 Rate Respiratory Rate [Left Foot ] Blood Pressure 146/86 O2 Sat by Pulse 97 Oximetry 06/01/19 06/01/19 06/01/19 09:35 10:00 10:35 Temperature Pulse Rate Pulse Rate [ From Monitor] Respiratory 20 20 Rate Respiratory 20 Rate [Left Foot ] Blood Pressure O2 Sat by Pulse Oximetry 06/01/19 12:00 Temperature Pulse Rate 96 H Pulse Rate [ 96 H From Monitor] Respiratory 20 Rate Respiratory Rate [Left Foot ] Blood Pressure O2 Sat by Pulse 99 Oximetry General appearance: Present: mild distress (left lower extremity discomfort) - EENT Eyes: EOM intact ENT: hearing intact - Respiratory Respiratory effort: normal Extremities: pulses intact, normal temperature, normal color, abnormal (bruise associated with left popliteal fossa) - Gastrointestinal General gastrointestinal: Present: soft, non-tender - Psychiatric Psychiatric: appropriate mood/affect, cooperative - Labs CBC & Chem 7: 12/02/19 10:56 06/01/19 06:45 Labs: Abnormal lab results 06/01/19 06/01/19 06/01/19 Range/Units 06:45 06:45 10:56 WBC 13.0 H (4.5-11.0) K/mm3 RBC 2.82 L (3.65-5.03) M/mm3 Hgb 8.0 L D 7.7 L (10.1-14.3) gm/dl Hct 24.2 L D 23.2 L (30.3-42.9) % [place] % (Auto) 7.4 H (0.0-7.3) % [place] # 1.0 H (0.0-0.8) K/mm3 Seg Neutrophils # 8.9 H (1.8-7.7) K/mm3 Potassium 3.5 L (3.6-5.0) mmol/L BUN 4 L (7-17) mg/dL Creatinine 0.5 L (0.7-1.2) mg/dL Medications & Allergies - Medications Allergies/Adverse Reactions: Allergies No Known Allergies Allergy (Unverified 05/07/19 01:33) Home Medications: Home Medications Medication Instructions Recorded Confirmed Last Taken Type Cyclobenzaprine [Flexeril] 10 mg PO TID PRN #30 tablet 05/07/19 05/29/19 05/29/19 Rx Menthol/Camphor [[place] 1 applicatio TP QID PRN #1 tube 05/07/19 05/29/19 05/29/19 Rx Ointment] Naproxen 500 mg PO BID PRN #30 tablet 05/07/19 05/29/19 05/29/19 Rx Active Medications: Generic Name Dose Route Start Last Admin Trade Name Freq PRN Reason Stop Dose Admin Acetaminophen 650 mg 05/29/19 18:22 Tylenol PO Q4H PRN Pain MILD(1-3)/Fever >100.5/ARAGON Acetaminophen/Hydrocodone Bitart 2 each 05/29/19 19:36 06/01/19 09:35 [place] 5/325 PO 2 each Q6H PRN Administration Pain, Moderate (4-6) Albuterol 2.5 mg 05/29/19 18:22 Proventil IH Q4H PRN Shortness Of Breath Apixaban 10 mg 05/31/19 11:00 06/01/19 09:36 Eliquis PO 06/06/19 22:01 10 mg Q12HR ROE Administration Protocol Apixaban 5 mg 06/07/19 10:00 Eliquis PO Q12HR ROE Protocol Hydralazine HCl 10 mg 05/29/19 22:43 05/30/19 14:36 Apresoline IV 10 mg Q6H PRN Administration Blood Pressure Vancomycin HCl 1,250 mg/ 275 mls @ 183.333 mls/hr 05/30/19 08:00 06/01/19 09:45 Sodium Chloride IV 06/01/19 23:59 183.333 mls/hr Q12H ROE Administration Ceftriaxone Sodium 2 gm in 100 mls @ 200 mls/hr 05/30/19 10:00 06/01/19 09:35 Rocephin/Ns 2 Gm/100 Ml IV 06/05/19 10:29 200 mls/hr Q24HR ROE Administration Protocol Morphine Sulfate 2 mg 05/30/19 10:22 05/30/19 14:40 Morphine IV 2 mg Q2H PRN Administration Pain, Moderate (4-6) Morphine Sulfate 4 mg 05/30/19 10:22 05/31/19 21:03 Morphine IV 4 mg Q2H PRN Administration Pain , Severe (7-10) Ondansetron HCl 4 mg 05/29/19 18:22 Zofran IV Q8H PRN Nausea And Vomiting Oxycodone/Acetaminophen 1 tab 05/29/19 18:22 05/31/19 02:04 Percocet 5/325 PO 1 tab Q6H PRN Administration Pain, Moderate (4-6) Sodium Chloride 10 ml 05/29/19 22:00 06/01/19 09:37 Sodium Chloride Flush Syringe 10 Ml IV 10 ml BID ROE Administration Sodium Chloride 10 ml 05/29/19 18:22 Sodium Chloride Flush Syringe 10 Ml IV PRN PRN LINE FLUSH
--- NOTE | 2019-06-01 14:10 | Progress Note ---
Assessment and Plan Assessment and plan: Sepsis Cont. Ceftriaxone. D/C Vanc. Bld Cx neg 48hrs Klebsiella UTI. As above DVT left lower ext s/p IVC filter placement, EKOS catheter placenment and thrombolysis, removal of EKOS catheter, mechanical thrombectomy Therapeutic anticoagulation, Hypercoagulable workup, heparin drip Obesity Balanced diet, increased physical activity ad discharge, Nicotine dependence with withdrawal +15min, smoking cessation counseling, supportive care. Acidosis Treat sepsis, serial lactic acid level, supportive care. IVF resuscitation therapy. UTI On Ceftriaxone Urine culture growing Gram neg rods History Interval history: No new issues overnight Hospitalist Physical - Constitutional Vitals: Temp Pulse Resp BP Pulse Ox 98.3 F 96 H 20 146/86 99 06/01/19 04:58 06/01/19 12:00 06/01/19 12:00 06/01/19 04:58 06/01/19 12:00 General appearance: Present: no acute distress - EENT Eyes: Present: PERRL, EOM intact ENT: hearing intact, clear oral mucosa, dentition normal - Neck Neck: Present: supple, normal ROM - Respiratory Respiratory effort: normal Respiratory: bilateral: CTA - Cardiovascular Rhythm: regular Heart Sounds: Present: S1 & S2. Absent: gallop, rub - Extremities Extremities: no ischemia, No edema, Full ROM - Abdominal General gastrointestinal: soft, non-tender, non-distended, normal bowel sounds - Integumentary Integumentary: Present: clear, warm, dry - Neurologic Neurologic: CNII-XII intact, moves all extremities Results - Labs CBC & Chem 7: 06/01/19 10:56 06/01/19 06:45 Labs: Laboratory Last Values WBC 13.0 K/mm3 (4.5-11.0) H 06/01/19 06:45 RBC 2.82 M/mm3 (3.65-5.03) L 06/01/19 06:45 Hgb 7.7 gm/dl (10.1-14.3) L 06/01/19 10:56 Hct 23.2 % (30.3-42.9) L 06/01/19 10:56 MCV 86 fl (79-97) 06/01/19 06:45 MCH 28 pg (28-32) 06/01/19 06:45 MCHC 33 % (30-34) 06/01/19 06:45 RDW 13.3 % (13.2-15.2) 06/01/19 06:45 Plt Count 140 K/mm3 (140-440) 06/01/19 06:45 Lymph % (Auto) 21.3 % (13.4-35.0) 06/01/19 06:45 [place] % (Auto) 7.4 % (0.0-7.3) H 06/01/19 06:45 Eos % (Auto) 2.5 % (0.0-4.3) 06/01/19 06:45 Baso % (Auto) 0.3 % (0.0-1.8) 06/01/19 06:45 Lymph # 2.8 K/mm3 (1.2-5.4) 06/01/19 06:45 [place] # 1.0 K/mm3 (0.0-0.8) H 06/01/19 06:45 Eos # 0.3 K/mm3 (0.0-0.4) 06/01/19 06:45 Baso # 0.0 K/mm3 (0.0-0.1) 06/01/19 06:45 Add Manual Diff Complete 05/30/19 15:21 Total Counted 100 05/30/19 15:21 Seg Neutrophils % 68.5 % (40.0-70.0) 06/01/19 06:45 Seg Neuts % (Manual) 87.0 % (40.0-70.0) H 05/30/19 15:21 Band Neutrophils % 0 % 05/30/19 15:21 Lymphocytes % (Manual) 9.0 % (13.4-35.0) L 05/30/19 15:21 Reactive Lymphs % (Man) 1.0 % 05/30/19 15:21 Monocytes % (Manual) 3.0 % (0.0-7.3) 05/30/19 15:21 Eosinophils % (Manual) 0 % (0.0-4.3) 05/30/19 15:21 Basophils % (Manual) 0 % (0.0-1.8) 05/30/19 15:21 Metamyelocytes % 0 % 05/30/19 15:21 Myelocytes % 0 % 05/30/19 15:21 Promyelocytes % 0 % 05/30/19 15:21 Blast Cells % 0 % 05/30/19 15:21 Nucleated RBC % Not Reportable 05/30/19 15:21 Seg Neutrophils # 8.9 K/mm3 (1.8-7.7) H 06/01/19 06:45 Seg Neutrophils # Man 18.0 K/mm3 (1.8-7.7) H 05/30/19 15:21 Band Neutrophils # 0.0 K/mm3 05/30/19 15:21 Lymphocytes # (Manual) 1.9 K/mm3 (1.2-5.4) 05/30/19 15:21 Abs React Lymphs (Man) 0.2 K/mm3 05/30/19 15:21 Monocytes # (Manual) 0.6 K/mm3 (0.0-0.8) 05/30/19 15:21 Eosinophils # (Manual) 0.0 K/mm3 (0.0-0.4) 05/30/19 15:21 Basophils # (Manual) 0.0 K/mm3 (0.0-0.1) 05/30/19 15:21 Metamyelocytes # 0.0 K/mm3 05/30/19 15:21 Myelocytes # 0.0 K/mm3 05/30/19 15:21 Promyelocytes # 0.0 K/mm3 05/30/19 15:21 Blast Cells # 0.0 K/mm3 05/30/19 15:21 WBC Morphology Not Reportable 05/30/19 15:21 Hypersegmented Neuts Not Reportable 05/30/19 15:21 Hyposegmented Neuts Not Reportable 05/30/19 15:21 Hypogranular Neuts Not Reportable 05/30/19 15:21 Smudge Cells Not Reportable 05/30/19 15:21 Toxic Granulation Not Reportable 05/30/19 15:21 Toxic Vacuolation Not Reportable 05/30/19 15:21 Dohle Bodies Not Reportable 05/30/19 15:21 Pelger-Huet Anomaly Not Reportable 05/30/19 15:21 Don Rods Not Reportable 05/30/19 15:21 Platelet Estimate Consistent w auto 05/30/19 15:21 Clumped Platelets Not Reportable 05/30/19 15:21 Plt Clumps, EDTA Not Reportable 05/30/19 15:21 Large Platelets Not Reportable 05/30/19 15:21 Giant Platelets Not Reportable 05/30/19 15:21 Platelet Satelliting Not Reportable 05/30/19 15:21 Plt Morphology Comment Not Reportable 05/30/19 15:21 RBC Morphology Normal 05/30/19 15:21 Dimorphic RBCs Not Reportable 05/30/19 15:21 Polychromasia Not Reportable 05/30/19 15:21 Hypochromasia Not Reportable 05/30/19 15:21 Poikilocytosis Not Reportable 05/30/19 15:21 Anisocytosis Not Reportable 05/30/19 15:21 Microcytosis Not Reportable 05/30/19 15:21 Macrocytosis Not Reportable 05/30/19 15:21 Spherocytes Not Reportable 05/30/19 15:21 Pappenheimer Bodies Not Reportable 05/30/19 15:21 Sickle Cells Not Reportable 05/30/19 15:21 Target Cells Not Reportable 05/30/19 15:21 Tear Drop Cells Not Reportable 05/30/19 15:21 Ovalocytes Not Reportable 05/30/19 15:21 Helmet Cells Not Reportable 05/30/19 15:21 [place] Bodies Not Reportable 05/30/19 15:21 [place] Rings Not Reportable 05/30/19 15:21 Ariadna Cells Not Reportable 05/30/19 15:21 Bite Cells Not Reportable 05/30/19 15:21 Crenated Cell Not Reportable 05/30/19 15:21 Elliptocytes Not Reportable 05/30/19 15:21 Acanthocytes (Spur) Not Reportable 05/30/19 15:21 Rouleaux Not Reportable 05/30/19 15:21 Hemoglobin C Crystals Not Reportable 05/30/19 15:21 Schistocytes Not Reportable 05/30/19 15:21 Malaria parasites Not Reportable 05/30/19 15:21 Miguel Bodies Not Reportable 05/30/19 15:21 Hem Pathologist Commnt No 05/30/19 15:21 PT 16.2 Sec. (12.2-14.9) H 05/30/19 15:05 INR 1.32 (0.87-1.13) H 05/30/19 15:05 APTT 65.8 Sec. (24.2-36.6) H* 05/30/19 15:05 Fibrinogen 155 mg/dl (211-480) L 05/30/19 15:05 Heparin Anti-Xa Level 0.30 U.I./ml (0.3-0.7) 05/30/19 19:32 Sodium 142 mmol/L (137-145) 06/01/19 06:45 Potassium 3.5 mmol/L (3.6-5.0) L 06/01/19 06:45 Chloride 101.6 mmol/L (98-107) 06/01/19 06:45 Carbon Dioxide 23 mmol/L (22-30) 06/01/19 06:45 Anion Gap 21 mmol/L 06/01/19 06:45 BUN 4 mg/dL (7-17) L 06/01/19 06:45 Creatinine 0.5 mg/dL (0.7-1.2) L 06/01/19 06:45 Estimated GFR > 60 ml/min 06/01/19 06:45 BUN/Creatinine Ratio 8 % 06/01/19 06:45 Glucose 95 mg/dL (65-100) 06/01/19 06:45 Lactic Acid 1.20 mmol/L (0.7-2.0) 05/30/19 00:55 Calcium 8.4 mg/dL (8.4-10.2) 06/01/19 06:45 Urine Color Yellow (Yellow) 05/29/19 19:48 Urine Turbidity Cloudy (Clear) 05/29/19 19:48 Urine pH 5.0 (5.0-7.0) 05/29/19 19:48 Ur Specific [place] 1.020 (1.003-1.030) 05/29/19 19:48 Urine Protein 100 mg/dl mg/dL (Negative) 05/29/19 19:48 Urine Glucose (UA) Neg mg/dL (Negative) 05/29/19 19:48 Urine Ketones Neg mg/dL (Negative) 05/29/19 19:48 Urine Blood Lg (Negative) 05/29/19 19:48 Urine Nitrite Neg (Negative) 05/29/19 19:48 Urine Bilirubin Neg (Negative) 05/29/19 19:48 Urine Urobilinogen < 2.0 mg/dL (<2.0) 05/29/19 19:48 Ur Leukocyte Esterase Sm (Negative) 05/29/19 19:48 Urine WBC (Auto) 42.0 /HPF (0.0-6.0) H 05/29/19 19:48 Urine RBC (Auto) 4.0 /HPF (0.0-6.0) 05/29/19 19:48 U Epithel Cells (Auto) 32.0 /HPF (0-13.0) H 05/29/19 19:48 Urine Bacteria (Auto) 4+ /HPF (Negative) 05/29/19 19:48 Urine Mucus 2+ /HPF 05/29/19 19:48 Urine Yeast (Budding) Few /HPF 05/29/19 19:48 Urine HCG, Qual Negative (Negative) 05/29/19 19:48 Blood Type A POSITIVE 05/30/19 15:15 Antibody Screen Negative 05/30/19 15:15 Active Medications - Current Medications Current Medications: Generic Name Dose Route Start Last Admin Trade Name Freq PRN Reason Stop Dose Admin Acetaminophen 650 mg 05/29/19 18:22 Tylenol PO Q4H PRN Pain MILD(1-3)/Fever >100.5/ARAGON Acetaminophen/Hydrocodone Bitart 2 each 05/29/19 19:36 06/01/19 09:35 [place] 5/325 PO 2 each Q6H PRN Administration Pain, Moderate (4-6) Albuterol 2.5 mg 05/29/19 18:22 Proventil IH Q4H PRN Shortness Of Breath Apixaban 10 mg 05/31/19 11:00 06/01/19 09:36 Eliquis PO 06/06/19 22:01 10 mg Q12HR ROE Administration Protocol Apixaban 5 mg 06/07/19 10:00 Eliquis PO Q12HR ROE Protocol Hydralazine HCl 10 mg 05/29/19 22:43 05/30/19 14:36 Apresoline IV 10 mg Q6H PRN Administration Blood Pressure Vancomycin HCl 1,250 mg/ 275 mls @ 183.333 mls/hr 05/30/19 08:00 06/01/19 09:45 Sodium Chloride IV 06/01/19 23:59 183.333 mls/hr Q12H ROE Administration Ceftriaxone Sodium 2 gm in 100 mls @ 200 mls/hr 05/30/19 10:00 06/01/19 09:35 Rocephin/Ns 2 Gm/100 Ml IV 06/05/19 10:29 200 mls/hr Q24HR ROE Administration Protocol Morphine Sulfate 2 mg 05/30/19 10:22 05/30/19 14:40 Morphine IV 2 mg Q2H PRN Administration Pain, Moderate (4-6) Morphine Sulfate 4 mg 05/30/19 10:22 05/31/19 21:03 Morphine IV 4 mg Q2H PRN Administration Pain , Severe (7-10) Ondansetron HCl 4 mg 05/29/19 18:22 Zofran IV Q8H PRN Nausea And Vomiting Oxycodone/Acetaminophen 1 tab 05/29/19 18:22 05/31/19 02:04 Percocet 5/325 PO 1 tab Q6H PRN Administration Pain, Moderate (4-6) Sodium Chloride 10 ml 05/29/19 22:00 06/01/19 09:37 Sodium Chloride Flush Syringe 10 Ml IV 10 ml BID ROE Administration Sodium Chloride 10 ml 05/29/19 18:22 Sodium Chloride Flush Syringe 10 Ml IV PRN PRN LINE FLUSH
[2019-06-02] MEDS: HYDROcodone/ACETAMINOPHEN 5-325 MG TAB PO PRN ×3 (05:51→21:38)
--- NOTE | 2019-06-02 10:20 | Progress Note ---
Assessment and Plan 28-year-old female on oral contraceptives to actively smokes with left lower extremity [id number] DVT status post lysis with thrombectomy. Patient has no pelvic discomfort. Patient has much less lower extremity discomfort than yesterday. Palpable pedal pulses. Discussed with nursing about obtaining larger IVY hose for patient. Physical therapy to increase ambulation. Discharge based on ambulatory status. Discussed anticoagulation with case management. Explained concern that patient is without insurance. They will attempt to get patient Eliquis for 1 month. Told patient to obtain Eliquis through [employer] assistance program as soon as possible. Told patient that if she is getting close to running out of Eliquis, go to the emergency room at any hospital and do not allow yourself to lapse on anticoagulation. Discussed with patient she will need IVC filter removed by Dr. Wesley in the next few months. Patient understands. Proper use of medicine discussed with patient. Subjective Date of service: 06/02/19 Principal diagnosis: left lower extremity DVT Interval history: Palpable pedal pulses. Still has left lower extremity swelling. Pain has improved. Still has "tightness" of the left thigh, but less. Able to ambulate better. Tried to wear IVY hose, but patient found them too small. Objective - Constitutional Vitals: Vital Signs - 12hr 06/02/19 06/02/19 06/02/19 00:00 00:25 04:00 Temperature 98.2 F Pulse Rate 93 H 96 H 97 H Pulse Rate [ 98 H From Monitor] Respiratory 18 20 Rate Blood Pressure 136/88 O2 Sat by Pulse 99 Oximetry 06/02/19 06/02/19 06/02/19 05:28 05:51 07:31 Temperature 98.7 F 98.0 F Pulse Rate 105 H Pulse Rate [ From Monitor] Respiratory 18 18 18 Rate Blood Pressure 142/84 136/58 O2 Sat by Pulse 96 Oximetry General appearance: Present: mild distress (Left lower extremity discomfort, improved) - EENT Eyes: EOM intact ENT: hearing intact - Respiratory Respiratory effort: normal Extremities: pulses intact, normal temperature Extremity abnormal: edema (LLE) - Psychiatric Psychiatric: appropriate mood/affect, cooperative - Labs CBC & Chem 7: 06/01/19 10:56 06/01/19 06:45 Labs: Abnormal lab results 06/01/19 Range/Units 10:56 Hgb 7.7 L (10.1-14.3) gm/dl Hct 23.2 L (30.3-42.9) % Medications & Allergies - Medications Allergies/Adverse Reactions: Allergies No Known Allergies Allergy (Unverified 05/07/19 01:33) Home Medications: Home Medications Medication Instructions Recorded Confirmed Last Taken Type Cyclobenzaprine [Flexeril] 10 mg PO TID PRN #30 tablet 05/07/19 05/29/19 05/29/19 Rx Menthol/Camphor [[place] 1 applicatio TP QID PRN #1 tube 05/07/19 05/29/19 05/29/19 Rx Ointment] Naproxen 500 mg PO BID PRN #30 tablet 05/07/19 05/29/19 05/29/19 Rx Active Medications: Generic Name Dose Route Start Last Admin Trade Name Freq PRN Reason Stop Dose Admin Acetaminophen 650 mg 05/29/19 18:22 Tylenol PO Q4H PRN Pain MILD(1-3)/Fever >100.5/ARAGON Acetaminophen/Hydrocodone Bitart 2 each 05/29/19 19:36 06/02/19 05:51 [place] 5/325 PO 2 each Q6H PRN Administration Pain, Moderate (4-6) Albuterol 2.5 mg 05/29/19 18:22 Proventil IH Q4H PRN Shortness Of Breath Apixaban 10 mg 05/31/19 11:00 06/01/19 21:20 Eliquis PO 06/06/19 22:01 10 mg Q12HR ROE Administration Protocol Apixaban 5 mg 06/07/19 10:00 Eliquis PO Q12HR ROE Protocol Hydralazine HCl 10 mg 05/29/19 22:43 05/30/19 14:36 Apresoline IV 10 mg Q6H PRN Administration Blood Pressure Ceftriaxone Sodium 2 gm in 100 mls @ 200 mls/hr 05/30/19 10:00 06/01/19 09:35 Rocephin/Ns 2 Gm/100 Ml IV 06/05/19 10:29 200 mls/hr Q24HR ROE Administration Protocol Morphine Sulfate 2 mg 05/30/19 10:22 05/30/19 14:40 Morphine IV 2 mg Q2H PRN Administration Pain, Moderate (4-6) Morphine Sulfate 4 mg 05/30/19 10:22 05/31/19 21:03 Morphine IV 4 mg Q2H PRN Administration Pain , Severe (7-10) Ondansetron HCl 4 mg 05/29/19 18:22 Zofran IV Q8H PRN Nausea And Vomiting Oxycodone/Acetaminophen 1 tab 05/29/19 18:22 05/31/19 02:04 Percocet 5/325 PO 1 tab Q6H PRN Administration Pain, Moderate (4-6) Sodium Chloride 10 ml 05/29/19 22:00 06/01/19 21:22 Sodium Chloride Flush Syringe 10 Ml IV 10 ml BID ROE Administration Sodium Chloride 10 ml 05/29/19 18:22 Sodium Chloride Flush Syringe 10 Ml IV PRN PRN LINE FLUSH
[2019-06-02] MEDS: APIXABAN 5 MG TAB PO SCH ×2 (10:55→21:38)
[2019-06-02] MEDS: cefTRIAXone/NS 2 GM/100 ML 2 GM/100 ML BAG IV SCH (10:55)
[2019-06-02 13:28] LABS: Protein S, Free 144 % normal (50-147); Protein S, Total 131 % normal (70-140)
[2019-06-03] MEDS: HYDROcodone/ACETAMINOPHEN 5-325 MG TAB PO PRN (08:08)
[2019-06-03 08:41] VITALS: BP 124/68
--- NOTE | 2019-06-03 08:53 | Progress Note ---
Assessment and Plan Assessment and plan: Sepsis Cont. Ceftriaxone. D/C Vanc. Bld Cx neg 48hrs Klebsiella UTI. As above DVT left lower ext s/p IVC filter placement, EKOS catheter placenment and thrombolysis, removal of EKOS catheter, mechanical thrombectomy Therapeutic anticoagulation, Hypercoagulable workup, heparin drip Obesity Balanced diet, increased physical activity ad discharge, Nicotine dependence with withdrawal +15min, smoking cessation counseling, supportive care. Acidosis Treat sepsis, serial lactic acid level, supportive care. IVF resuscitation therapy. UTI On Ceftriaxone Urine culture growing Gram neg rods History Interval history: No new issues overnight Hospitalist Physical - Constitutional Vitals: Temp Pulse Resp BP Pulse Ox 97.9 F 107 H 20 124/68 95 06/03/19 07:34 06/03/19 04:05 06/03/19 08:08 06/03/19 07:34 06/03/19 04:05 General appearance: Present: no acute distress - EENT Eyes: Present: PERRL, EOM intact ENT: hearing intact, clear oral mucosa, dentition normal - Neck Neck: Present: supple, normal ROM - Respiratory Respiratory effort: normal Respiratory: bilateral: CTA - Cardiovascular Rhythm: regular Heart Sounds: Present: S1 & S2. Absent: gallop, rub - Extremities Extremities: no ischemia, No edema, Full ROM - Abdominal General gastrointestinal: soft, non-tender, non-distended, normal bowel sounds - Integumentary Integumentary: Present: clear, warm, dry - Neurologic Neurologic: CNII-XII intact, moves all extremities Results - Labs CBC & Chem 7: 06/01/19 10:56 06/01/19 06:45 Labs: Laboratory Last Values WBC 13.0 K/mm3 (4.5-11.0) H 06/01/19 06:45 RBC 2.82 M/mm3 (3.65-5.03) L 06/01/19 06:45 Hgb 7.7 gm/dl (10.1-14.3) L 06/01/19 10:56 Hct 23.2 % (30.3-42.9) L 06/01/19 10:56 MCV 86 fl (79-97) 06/01/19 06:45 MCH 28 pg (28-32) 06/01/19 06:45 MCHC 33 % (30-34) 06/01/19 06:45 RDW 13.3 % (13.2-15.2) 06/01/19 06:45 Plt Count 140 K/mm3 (140-440) 06/01/19 06:45 Lymph % (Auto) 21.3 % (13.4-35.0) 06/01/19 06:45 [place] % (Auto) 7.4 % (0.0-7.3) H 06/01/19 06:45 Eos % (Auto) 2.5 % (0.0-4.3) 06/01/19 06:45 Baso % (Auto) 0.3 % (0.0-1.8) 06/01/19 06:45 Lymph # 2.8 K/mm3 (1.2-5.4) 06/01/19 06:45 [place] # 1.0 K/mm3 (0.0-0.8) H 06/01/19 06:45 Eos # 0.3 K/mm3 (0.0-0.4) 06/01/19 06:45 Baso # 0.0 K/mm3 (0.0-0.1) 06/01/19 06:45 Add Manual Diff Complete 05/30/19 15:21 Total Counted 100 05/30/19 15:21 Seg Neutrophils % 68.5 % (40.0-70.0) 06/01/19 06:45 Seg Neuts % (Manual) 87.0 % (40.0-70.0) H 05/30/19 15:21 Band Neutrophils % 0 % 05/30/19 15:21 Lymphocytes % (Manual) 9.0 % (13.4-35.0) L 05/30/19 15:21 Reactive Lymphs % (Man) 1.0 % 05/30/19 15:21 Monocytes % (Manual) 3.0 % (0.0-7.3) 05/30/19 15:21 Eosinophils % (Manual) 0 % (0.0-4.3) 05/30/19 15:21 Basophils % (Manual) 0 % (0.0-1.8) 05/30/19 15:21 Metamyelocytes % 0 % 05/30/19 15:21 Myelocytes % 0 % 05/30/19 15:21 Promyelocytes % 0 % 05/30/19 15:21 Blast Cells % 0 % 05/30/19 15:21 Nucleated RBC % Not Reportable 05/30/19 15:21 Seg Neutrophils # 8.9 K/mm3 (1.8-7.7) H 06/01/19 06:45 Seg Neutrophils # Man 18.0 K/mm3 (1.8-7.7) H 05/30/19 15:21 Band Neutrophils # 0.0 K/mm3 05/30/19 15:21 Lymphocytes # (Manual) 1.9 K/mm3 (1.2-5.4) 05/30/19 15:21 Abs React Lymphs (Man) 0.2 K/mm3 05/30/19 15:21 Monocytes # (Manual) 0.6 K/mm3 (0.0-0.8) 05/30/19 15:21 Eosinophils # (Manual) 0.0 K/mm3 (0.0-0.4) 05/30/19 15:21 Basophils # (Manual) 0.0 K/mm3 (0.0-0.1) 05/30/19 15:21 Metamyelocytes # 0.0 K/mm3 05/30/19 15:21 Myelocytes # 0.0 K/mm3 05/30/19 15:21 Promyelocytes # 0.0 K/mm3 05/30/19 15:21 Blast Cells # 0.0 K/mm3 05/30/19 15:21 WBC Morphology Not Reportable 05/30/19 15:21 Hypersegmented Neuts Not Reportable 05/30/19 15:21 Hyposegmented Neuts Not Reportable 05/30/19 15:21 Hypogranular Neuts Not Reportable 05/30/19 15:21 Smudge Cells Not Reportable 05/30/19 15:21 Toxic Granulation Not Reportable 05/30/19 15:21 Toxic Vacuolation Not Reportable 05/30/19 15:21 Dohle Bodies Not Reportable 05/30/19 15:21 [place]-Huet Anomaly Not Reportable 05/30/19 15:21 Don Rods Not Reportable 05/30/19 15:21 Platelet Estimate Consistent w auto 05/30/19 15:21 Clumped Platelets Not Reportable 05/30/19 15:21 Plt Clumps, EDTA Not Reportable 05/30/19 15:21 Large Platelets Not Reportable 05/30/19 15:21 Giant Platelets Not Reportable 05/30/19 15:21 Platelet Satelliting Not Reportable 05/30/19 15:21 Plt Morphology Comment Not Reportable 05/30/19 15:21 RBC Morphology Normal 05/30/19 15:21 Dimorphic RBCs Not Reportable 05/30/19 15:21 Polychromasia Not Reportable 05/30/19 15:21 Hypochromasia Not Reportable 05/30/19 15:21 Poikilocytosis Not Reportable 05/30/19 15:21 Anisocytosis Not Reportable 05/30/19 15:21 Microcytosis Not Reportable 05/30/19 15:21 Macrocytosis Not Reportable 05/30/19 15:21 Spherocytes Not Reportable 05/30/19 15:21 Pappenheimer Bodies Not Reportable 05/30/19 15:21 Sickle Cells Not Reportable 05/30/19 15:21 Target Cells Not Reportable 05/30/19 15:21 Tear Drop Cells Not Reportable 05/30/19 15:21 Ovalocytes Not Reportable 05/30/19 15:21 Helmet Cells Not Reportable 05/30/19 15:21 [place] Bodies Not Reportable 05/30/19 15:21 [place] Rings Not Reportable 05/30/19 15:21 [place] Cells Not Reportable 05/30/19 15:21 Bite Cells Not Reportable 05/30/19 15:21 Crenated Cell Not Reportable 05/30/19 15:21 Elliptocytes Not Reportable 05/30/19 15:21 Acanthocytes (Spur) Not Reportable 05/30/19 15:21 Rouleaux Not Reportable 05/30/19 15:21 Hemoglobin C Crystals Not Reportable 05/30/19 15:21 Schistocytes Not Reportable 05/30/19 15:21 Malaria parasites Not Reportable 05/30/19 15:21 [place] Bodies Not Reportable 05/30/19 15:21 Hem Pathologist Commnt No 05/30/19 15:21 PT 16.2 Sec. (12.2-14.9) H 05/30/19 15:05 INR 1.32 (0.87-1.13) H 05/30/19 15:05 APTT 65.8 Sec. (24.2-36.6) H* 05/30/19 15:05 Fibrinogen 155 mg/dl (211-480) L 05/30/19 15:05 Protein C Antigen 117 % (70-140) 05/29/19 18:56 Free Protein S 144 % normal (50-147) 05/29/19 18:56 Total Protein S 131 % normal (70-140) 05/29/19 18:56 Antithrombin III Ag 96 % (80-120) 05/29/19 18:56 Heparin Anti-Xa Level 0.30 U.I./ml (0.3-0.7) 05/30/19 19:32 Sodium 142 mmol/L (137-145) 06/01/19 06:45 Potassium 3.5 mmol/L (3.6-5.0) L 06/01/19 06:45 Chloride 101.6 mmol/L (98-107) 06/01/19 06:45 Carbon Dioxide 23 mmol/L (22-30) 06/01/19 06:45 Anion Gap 21 mmol/L 06/01/19 06:45 BUN 4 mg/dL (7-17) L 06/01/19 06:45 Creatinine 0.5 mg/dL (0.7-1.2) L 06/01/19 06:45 Estimated GFR > 60 ml/min 06/01/19 06:45 BUN/Creatinine Ratio 8 % 06/01/19 06:45 Glucose 95 mg/dL (65-100) 06/01/19 06:45 Lactic Acid 1.20 mmol/L (0.7-2.0) 05/30/19 00:55 Calcium 8.4 mg/dL (8.4-10.2) 06/01/19 06:45 Urine Color Yellow (Yellow) 05/29/19 19:48 Urine Turbidity Cloudy (Clear) 05/29/19 19:48 Urine pH 5.0 (5.0-7.0) 05/29/19 19:48 Ur Specific [place] 1.020 (1.003-1.030) 05/29/19 19:48 Urine Protein 100 mg/dl mg/dL (Negative) 05/29/19 19:48 Urine Glucose (UA) Neg mg/dL (Negative) 05/29/19 19:48 Urine Ketones Neg mg/dL (Negative) 05/29/19 19:48 Urine Blood Lg (Negative) 05/29/19 19:48 Urine Nitrite Neg (Negative) 05/29/19 19:48 Urine Bilirubin Neg (Negative) 05/29/19 19:48 Urine Urobilinogen < 2.0 mg/dL (<2.0) 05/29/19 19:48 Ur Leukocyte Esterase Sm (Negative) 05/29/19 19:48 Urine WBC (Auto) 42.0 /HPF (0.0-6.0) H 05/29/19 19:48 Urine RBC (Auto) 4.0 /HPF (0.0-6.0) 05/29/19 19:48 U Epithel Cells (Auto) 32.0 /HPF (0-13.0) H 05/29/19 19:48 Urine Bacteria (Auto) 4+ /HPF (Negative) 05/29/19 19:48 Urine Mucus 2+ /HPF 05/29/19 19:48 Urine Yeast (Budding) Few /HPF 05/29/19 19:48 Urine HCG, Qual Negative (Negative) 05/29/19 19:48 Blood Type A POSITIVE 05/30/19 15:15 Antibody Screen Negative 05/30/19 15:15 Active Medications - Current Medications Current Medications: Generic Name Dose Route Start Last Admin Trade Name Freq PRN Reason Stop Dose Admin Acetaminophen 650 mg 05/29/19 18:22 Tylenol PO Q4H PRN Pain MILD(1-3)/Fever >100.5/ARAGON Acetaminophen/Hydrocodone Bitart 2 each 05/29/19 19:36 06/03/19 08:08 [place] 5/325 PO 2 each Q6H PRN Administration Pain, Moderate (4-6) Albuterol 2.5 mg 05/29/19 18:22 Proventil IH Q4H PRN Shortness Of Breath Apixaban 10 mg 05/31/19 11:00 06/02/19 21:38 Eliquis PO 06/06/19 22:01 10 mg Q12HR ROE Administration Protocol Apixaban 5 mg 06/07/19 10:00 Eliquis PO Q12HR ROE Protocol Hydralazine HCl 10 mg 05/29/19 22:43 05/30/19 14:36 Apresoline IV 10 mg Q6H PRN Administration Blood Pressure Ceftriaxone Sodium 2 gm in 100 mls @ 200 mls/hr 05/30/19 10:00 06/02/19 10:55 Rocephin/Ns 2 Gm/100 Ml IV 06/05/19 10:29 200 mls/hr Q24HR ROE Administration Protocol Morphine Sulfate 2 mg 05/30/19 10:22 05/30/19 14:40 Morphine IV 2 mg Q2H PRN Administration Pain, Moderate (4-6) Morphine Sulfate 4 mg 05/30/19 10:22 05/31/19 21:03 Morphine IV 4 mg Q2H PRN Administration Pain , Severe (7-10) Ondansetron HCl 4 mg 05/29/19 18:22 Zofran IV Q8H PRN Nausea And Vomiting Oxycodone/Acetaminophen 1 tab 05/29/19 18:22 05/31/19 02:04 Percocet 5/325 PO 1 tab Q6H PRN Administration Pain, Moderate (4-6) Sodium Chloride 10 ml 05/29/19 22:00 06/02/19 21:39 Sodium Chloride Flush Syringe 10 Ml IV 10 ml BID ROE Administration Sodium Chloride 10 ml 05/29/19 18:22 Sodium Chloride Flush Syringe 10 Ml IV PRN PRN LINE FLUSH
--- NOTE | 2019-06-03 08:57 | Discharge Summary ---
Providers - Providers Date of Admission: 05/29/19 18:23 Date of discharge: 06/03/19 Attending physician: KAROL HERNANDEZ 05/30/19 12:35 Consult to Physician [CONS] Routine Comment: Done. No need to call Consulting Provider: ABHISHEK WESLEY Physician Instructions: Reason For Exam: DVT left leg 06/02/19 10:43 Physical Therapy Evaluation and Treat [CONS] Routine Comment: Reason For Exam: deconditioning Physical Therapy Evaluation and Treat [CONS] Routine Comment: Reason For Exam: eval & treat post thrombectomy Primary care physician: [employer] Hospitalization Reason for admission: LLE pain Condition: Stable Hospital course: 28-year-old female on oral contraceptives and actively smokes presented with left lower extremity [id number] DVT. The patient was seen by vascular surgeon consultation and underwent lysis with thrombectomy. The patient also had an IVC filter placement by Dr. Wesley. Vascular surgery Explained concern that patient is without insurance. CM will attempt to get patient Eliquis for 1 month. [facility] surgery told patient to obtain Eliquis through [employer] a ssistance program as soon as possible and that if she is getting close to running out of Eliquis, go to the emergency room at any hospital and do not allow yourself to lapse on anticoagulation. Duct. Discussed with patient she will need IVC filter removed by Dr. Wesley in the next few months. Patient understands. Proper use of medicine discussed with patient as well. Other complications don't hospital stay included sepsis secondary to Klebsiella UTI. Patient received appropriate IV antibiotics and will be discharged home with antibiotic. Dedicated discharge time 32 minutes. Disposition: - TO HOME OR SELFCARE Time spent for discharge: 32 - Discharge Diagnoses (1) DVT (deep venous thrombosis) Status: Acute (2) UTI (urinary tract infection) Status: Acute (3) Nicotine dependence with withdrawal Status: Acute Qualifiers: Nicotine product type: cigarettes Qualified Code(s): F17.213 - Nicotine dependence, cigarettes, with withdrawal (4) Obesity Status: Acute Qualifiers: Body mass index: BMI 40.0-44.9 (5) Sepsis Status: Acute Qualifiers: Severe sepsis shock status: unspecified Core Measure Documentation - Palliative Care Palliative Care/ Comfort Measures: Not Applicable - Core Measures Any of the following diagnoses?: DVT/PE - VTE Discharge Requirements Deep Vein Thrombosis/Pulmonary Embolism Present on Admission: Yes Has pt received <5 days of overlap therapy or INR<2.0: No Anticoagulant overlap therapy prescribed at discharge: No Contraindication No Overlap Therapy order at DC: Not Indicated Exam - Constitutional Vitals: Temp Pulse Resp BP Pulse Ox 97.9 F 107 H 20 124/68 95 06/03/19 07:34 06/03/19 04:05 06/03/19 08:08 06/03/19 07:34 06/03/19 04:05 General appearance: Present: no acute distress, well-nourished - EENT Eyes: Present: PERRL ENT: hearing intact, clear oral mucosa - Neck Neck: Present: supple, normal ROM - Respiratory Respiratory effort: normal Respiratory: bilateral: CTA - Cardiovascular Heart Sounds: Present: S1 & S2. Absent: rub, click - Extremities Extremities: pulses symmetrical, No edema Peripheral Pulses: within normal limits - Abdominal General gastrointestinal: Present: soft, non-tender, non-distended, normal bowel sounds Female genitourinary: Present: normal - Integumentary Integumentary: Present: clear, warm, dry - Musculoskeletal Musculoskeletal: gait normal, strength equal bilaterally - Psychiatric Psychiatric: appropriate mood/affect, intact judgment & insight - Neurologic Neurologic: CNII-XII intact, moves all extremities Plan Activity: advance as tolerated Weight Bearing Status: Weight Bear as Tolerated Diet: regular Follow up with: PRIMARY CARE, [Primary Care Provider] - 7 Days ABHISHEK HANKS MD [Staff Physician] - 7 Days ABHISHEK WESLEY MD [Staff Physician] - 7 Days Prescriptions: Apixaban [Eliquis] 10 mg PO Q12HR #14 tablet Apixaban [Eliquis] 5 mg PO Q12HR #360 tablet Cyclobenzaprine [Flexeril 10 MG TAB] 10 mg PO TID PRN #30 tablet PRN Reason: Muscle Spasm HYDROcodone/APAP 5-325 [[place] 5-325 mg TAB] 2 each PO Q6H PRN #10 tablet PRN Reason: Pain, Moderate (4-6)
[2019-06-03] MEDS: cefTRIAXone/NS 2 GM/100 ML 2 GM/100 ML BAG IV SCH (10:01)
[2019-06-03] MEDS: APIXABAN 5 MG TAB PO SCH (10:01)
[2019-06-07] MEDS ORDERED: APIXABAN 5 MG TAB PO SCH (10:00)
== END 2019-06-03 14:56 | disposition home or self-care (01) | DRG 854 ==
LOC: ED 16:03 → CC1 18:23 → 4A 05-31 15:38
PROVIDERS: ADMIT Internal Medicine; ATTEND Hospitalist
PROC: 06H03DZ Insertion of Intraluminal Device into Inferior Vena Cava, Percutaneous Approach (ICD-10-PCS; principal; 2019-05-29)
PROC: B5191ZA Fluoroscopy of Inferior Vena Cava using Low Osmolar Contrast, Guidance (ICD-10-PCS; 2019-05-29)
PROC: B549ZZA Ultrasonography of Inferior Vena Cava, Guidance (ICD-10-PCS; 2019-05-29)
PROC: 3E05317 Introduction of Other Thrombolytic into Peripheral Artery, Percutaneous Approach (ICD-10-PCS; 2019-05-29)
PROC: 04HL33Z Insertion of Infusion Device into Left Femoral Artery, Percutaneous Approach (ICD-10-PCS; 2019-05-29)
PROC: 06CD3ZZ Extirpation of Matter from Left Common Iliac Vein, Percutaneous Approach (ICD-10-PCS; 2019-05-30)
PROC: 067D3ZZ Dilation of Left Common Iliac Vein, Percutaneous Approach (ICD-10-PCS; 2019-05-30)
PROC: 06C03ZZ Extirpation of Matter from Inferior Vena Cava, Percutaneous Approach (ICD-10-PCS; 2019-05-30)
PROC: B51C1ZZ Fluoroscopy of Left Lower Extremity Veins using Low Osmolar Contrast (ICD-10-PCS; 2019-05-30)
PROC: 06PY33Z Removal of Infusion Device from Lower Vein, Percutaneous Approach (ICD-10-PCS; 2019-05-30)
DX: A41.9 Sepsis, unspecified organism (principal); I82.422 Acute embolism and thrombosis of left iliac vein; Z68.41 Body mass index [BMI] 40.0-44.9, adult; F17.213 Nicotine dependence, cigarettes, with withdrawal; E87.2 Acidosis; N39.0 Urinary tract infection, site not specified; F12.90 Cannabis use, unspecified, uncomplicated; E66.01 Morbid (severe) obesity due to excess calories; B96.1 Klebsiella pneumoniae [K. pneumoniae] as the cause of diseases classified elsewhere; F17.200 Nicotine dependence, unspecified, uncomplicated; Z79.899 Other long term (current) drug therapy; Z71.3 Dietary counseling and surveillance; Z71.6 Tobacco abuse counseling
CPT/HCPCS: 36415; 36556; 37187; 37191; 37212; 37214; 71045; 75820; 76937; 80048; 81001; 81025; 82140; 85007; 85014; 85018; 85025; 85049; 85220; 85301; 85305; 85384; 85520; 85610; 85730; 86850; 86900; 86901; 87040; 87076; 87086; 87186; 96374; 96375; 99406; G0378; C1725; C1751; C1752; C1757; C1769; C1880; C1887; C1894; J0360; J0696; J1644; J1885; J2250; J2270; J2405; J2997; J3010; J3370; J7030; J7040; J7050; Q9967

== ENCOUNTER 2019-06-25 18:48 | Emergency (ER) | payer SELFPAY ==
[2019-06-26] MEDS ORDERED: APIXABAN 5 MG TAB PO ONE (00:58)
--- NOTE | 2019-06-26 01:02 | Emergency Department Report ---
HPI - General Chief Complaint: Medical Clearance Time Seen by Provider: 06/26/19 00:58 - HPI HPI: 28-year-old female presents to the emergency Department for a medication refill of her eliquis. She has a history of a DVT from about 1 month ago in her left leg. She was started on the anticoagulation at that time and took her last pill this morning. She is currently taking 5 mg twice a day. She denies any changes regarding the leg pain, swelling and says she is just here for a medication refill. She follows with Dr. Toro for vascular surgery. ED Past Medical Hx - Past Medical History Previous Medical History?: Yes Additional medical history: Left DVT. - Surgical History Past Surgical History?: Yes Additional Surgical History: Filter left lower leg. - Social History Smoking Status: Former Smoker Substance Use Type: Alcohol - Medications Home Medications: Home Medications Medication Instructions Recorded Confirmed Last Taken Type Apixaban [Eliquis] 5 mg PO Q12HR #60 tablet 06/26/19 Unknown Rx ED Review of Systems ROS: Stated complaint: MED REFILL Other details as noted in HPI Comment: All other systems reviewed and negative Constitutional: denies: chills, fever Cardiovascular: edema (chronic LLE swelling) Musculoskeletal: myalgia (chronic soreness to left LE from DVT) Skin: denies: rash, lesions Neurological: denies: numbness, paresthesias Physical Exam - Physical Exam Vital Signs: Vital Signs 06/25/19 19:30 Temperature 98.3 F Pulse Rate 102 H Respiratory 20 Rate Blood Pressure 156/100 O2 Sat by Pulse 97 Oximetry Physical Exam: GENERAL: The patient is well-developed well-nourished. HEENT: Normocephalic. Atraumatic. Patient has moist mucous membranes. EYES: Extraocular motions are intact. NECK: Supple. Trachea is midline CHEST/LUNGS: Clear to auscultation. There is no respiratory distress noted. HEART/CARDIOVASCULAR: Regular. There is no tachycardia. ABDOMEN: There is no abdominal distention. SKIN: Skin is warm and dry. There is some nonpitting swelling to the left lower extremity when compared to the right. NEURO: The patient is awake, alert, and oriented. The patient is cooperative. Normal speech. MUSCULOSKELETAL: There is no tenderness or deformity. ED Course Vital Signs 06/25/19 19:30 Temperature 98.3 F Pulse Rate 102 H Respiratory 20 Rate Blood Pressure 156/100 O2 Sat by Pulse 97 Oximetry ED Medical Decision Making - Medical Decision Making This patient just came for a medication refill of her anticoagulation secondary to a left lower extremity DVT. She has good outpatient follow-up with Dr. Lou of vascular surgery. She was given her nighttime dose of the medication and a prescription for a one-month supply. She will return to the ER with any worsening of her symptoms or any acute distress. Critical Care Time: No Critical care attestation.: If time is entered above; I have spent that time in minutes in the direct care of this critically ill patient, excluding procedure time. ED Disposition Clinical Impression: Hx of deep venous thrombosis, Medication refill Disposition: TO HOME OR SELFCARE Is pt being admited?: No Condition: Stable Instructions: Apixaban (By mouth) Additional Instructions: Please follow-up with your vascular surgeon as previously scheduled. Continue taking the anticoagulation as prescribed. Return to the emergency department with any concerns or any acute distress. Prescriptions: Apixaban [Eliquis] 5 mg PO Q12HR #60 tablet Referrals: PRIMARY CAREMD [Primary Care Provider] - 3-5 Days Time of Disposition: :
[2019-06-26 01:18] VITALS: BP 125/72
== END 2019-06-26 01:19 | disposition home or self-care (01) ==
LOC: ED 18:48
DX: I82.409 Acute embolism and thrombosis of unspecified deep veins of unspecified lower extremity (principal); Z76.0 Encounter for issue of repeat prescription; Z98.890 Other specified postprocedural states; Z87.891 Personal history of nicotine dependence; Z79.899 Other long term (current) drug therapy
CPT/HCPCS: 99282